=== PATIENT | female | born 1935 | race Hispanic/Latino ===

== ENCOUNTER 2018-11-19 11:54 | Inpatient (IN) | payer MEDICARE, BC ==
[2018-11-19 12:13] VITALS: BMI 25.7
[2018-11-19] MEDS ORDERED: Sodium Chloride 0.9% 1,000 ML IV STA ×2 (12:15→13:06)
[2018-11-19] MEDS ORDERED: Atropine 0.4 mg/ml Inj (1 mL) IV STA (12:22)
[2018-11-19 12:25] LABS: BASO # 0.1 K/uL (0.0-0.2); BASO % 0.8 % (0.0-2.0); EOS # 0.3 K/uL (0.0-0.7); EOS % 2.9 % (0.0-4.0); HEMOGLOBIN 12.2 g/dL (12.0-16.0); LYMPH # 1.3 K/uL (1.0-4.3); LYMPH % 12.8 % (20.0-40.0); MEAN CELL VOLUME 95.8 fl (81.0-99.0); MEAN CORPUSCULAR HEMOGLOBIN 32.6 pg (27.0-31.0); MONO # 0.8 K/uL (0.0-0.8); MONO % 8.4 % (0.0-10.0); NEUT # 7.4 K/uL (1.8-7.0); NEUT % 75.1 % (50.0-75.0); NRBC % 0.1 % (0.0-0.0); RBC 3.74 Mil/uL (3.80-5.20); RED CELL DISTRIBUTION WIDTH 13.2 % (11.5-14.5); WHITE BLOOD COUNT 9.9 K/uL (4.8-10.8)
[2018-11-19 12:32] LABS: PROTHROMBIN TIME 11.3 Seconds (9.8-13.1)
--- NOTE | 2018-11-19 12:33 | ED PDOC ---
Syncope/Near Syncope/Dizziness Time Seen by Provider: 11/19/18 11:58 Chief Complaint (Nursing): Dizziness/Lightheaded Chief Complaint (Provider): Dizziness/Lightheaded History Per: Patient, Family History/Exam Limitations: no limitations Onset/Duration Of Symptoms: Mins Current Symptoms Are (Timing): Still Present Activity At Onset Of Symptoms: Walking Additional Complaint(s): 83 y/o female with a PMHx of HTN presents to the ED for evaluation of two near syncopal episodes just prior to arrival. Son reports patient was walking down the street when she began to feel faint, close to losing consciousness twice. Son states initial episode occurred about 25 minutes prior to arrival and then next about 15 minutes prior to arrival. Patient and son report that patient only develops slurred speech, nausea, abdominal pain and right shoulder pain during those episodes. Patient denies any symptoms at present including numbness, tingling, leg pain, headache, vision changes, weakness, focal deficits, shortness of breath and palpitations. Patient noted to have a low pulse and was brought in via EMS for further evaluation. Of note, patient is visiting from [place]. Patient reports of feeling fine prior to incidents. notes patient is currently taking Losartan, Metropolol, carvedilol, memantine and Atorvastatin 40 mg. PMD: In [place], [place] Past Medical History Reviewed: Historical Data, Nursing Documentation, Vital Signs Vital Signs: Last Vital Signs Temp Pulse 41 L 11/19/18 12:09 Resp 14 11/19/18 12:09 BP 107/43 L 11/19/18 12:09 Pulse Ox 98 11/19/18 12:09 Primary Care Provider: Non [facility] Provider, - Medical History PMH: No Chronic Diseases - Surgical History Surgical History: No Surg Hx - Family History Family History: States: Unknown Family Hx - Living Arrangements Living Arrangements: With Family - Home Medications Home Medications: Ambulatory Orders Medication Instructions Recorded Aspirin [Ecotrin] 81 mg PO DAILY 11/19/18 Atorvastatin [Lipitor] 40 mg PO HS 11/19/18 Carvedilol [Coreg] 6.25 mg PO Q12 11/19/18 Diltiazem HCl [Diltiazem 24Hr ER] 300 mg PO DAILY 11/19/18 Losartan [Cozaar] 100 mg PO DAILY 11/19/18 Memantine [Namenda] 5 mg PO Q12 11/19/18 Metoprolol Succinate XL [Toprol XL] 100 mg PO DAILY 11/19/18 - Allergies Allergies/Adverse Reactions: Allergies Allergy/AdvReac Type Severity Reaction Status Date / Time No Known Allergies Allergy Verified 11/19/18 12:12 Review of Systems ROS Statement: Except As Marked, All Systems Reviewed And Found Negative Eyes: Negative for: Vision Change Cardiovascular: Negative for: Palpitations Respiratory: Negative for: Shortness of Breath Gastrointestinal: Positive for: Abdominal Pain Musculoskeletal: Positive for: Shoulder Pain. Negative for: Leg Pain Neurological: Positive for: Change in Speech, Dizziness, Other (near syncope). Negative for: Weakness, Numbness Physical Exam - Reviewed Nursing Documentation Reviewed: Yes Vital Signs Reviewed: Yes - Physical Exam Appears: Positive for: No Acute Distress Head Exam: Positive for: ATRAUMATIC, NORMOCEPHALIC Skin: Positive for: Normal Color, Warm, Dry Eye Exam: Positive for: Normal appearance, EOMI, PERRL ENT: Positive for: Normal ENT Inspection Neck: Positive for: Normal, Painless ROM Cardiovascular/Chest: Positive for: Bradycardia Respiratory: Positive for: Normal Breath Sounds. Negative for: Respiratory Distress Gastrointestinal/Abdominal: Positive for: Normal Exam, Soft. Negative for: Tenderness Extremity: Positive for: Normal ROM. Negative for: Pedal Edema, Deformity Neurological/Psych: Positive for: Awake, Alert, Oriented (x3). Negative for: Motor/Sensory Deficits - Laboratory Results Result Diagrams: 11/19/18 12:18 11/19/18 12:18 Lab Results: 34/1.7 bun and cr - ECG ECG: Positive for: Discussed With Medical Coder ECG Rhythm: Positive for: Sinus Bradycardia Interpretation Of Abn EKG: junctional escape rhythm Interpretation Of ECnd ekg: similar with increased HR compared to prior O2 Sat by Pulse Oximetry: 98 (RA) Pulse Ox Interpretation: Normal - Radiology X-Ray: Interpreted by Me, Viewed By Me X-Ray Interpretation: No Acute Disease Medical Decision Making Medical Decision Making: Time: 1229 Impression: Bradycardia Plan: -- VBG -- EKG -- EKG -- CMP -- Magnesium -- Phosphorus -- Troponin I -- CBC with Differentials -- PTT -- Prothrombin Time: -- CXR Portable -- Glucose, POC -- Atropine 0.5 mg IV -- Atropine 0.5 mg IV -- Sodium Chloride IV 1000 mls/hr -- POC [Glucose, Blood, POC] Spoke to in school suspension aide [employer] member, Dr. Taylor who is made aware of the patient and will read EKG via text. As recommended by Dr. Taylor, patient to be given Atropiene if develops symptoms. Time: 1232 Dr. Taylor reviewed EKG that demonstrated sinus bradycardia with junctional escape. Pt. has pacer pads on. 1300 Atropine given as HR was going down to 35. It increased HR to 50-60. Repeat ekg shows similar, but increased rate. 1340 Stable. HR above 45. BP maintained at 120s systolic. Continue monitoring. Possibly beta-arielle related. Will need admit. No symptoms currently. [address] Desai. Will admit. Dr. Ponce at bedside. He went to CT with pt. 1430 Dr. Kohli aware and will admit ICU. Dr. Ponce does not want any more atropine at this time. Pt. asymptomatic. AAOx3. No dizziness. Scribe Attestation: Documented by Jay Garcia, acting as a scribe Diana Porras MD. Provider Scribe Attestation: All medical record entries made by the Scribe were at my direction and personall y dictated by me. I have reviewed the chart and agree that the record accurately reflects my personal performance of the history, physical exam, medical decision making, and the department course for this patient. I have also personally directed, reviewed, and agree with the discharge instructions and disposition. Disposition - Clinical Impression Clinical Impression: Dizziness, Bradycardia - Patient ED Disposition Is Patient to be Admitted: Yes Counseled Patient/Family Regarding: Studies Performed, Diagnosis - Disposition Disposition Time: 13:00 Condition: FAIR - Pt Status Changed To: Hospital Disposition Of: Inpatient - Admit Certification Admit to Inpatient:: After my assessment, the patient will require hospitalization for at least two midnights. This is because of the severity of symptoms shown, intensity of services needed, and/or the medical risk in this patient being treated as an outpatient. - POA Present On Arrival: None
[2018-11-19 12:34] LABS: PARTIAL THROMBOPLASTIN TIME 28.6 Seconds (25.6-37.1)
[2018-11-19 12:37] LABS: ALB/GLOB RATIO 1.4 (1.0-2.1); ALBUMIN 3.9 g/dL (3.5-5.0); CALCIUM 9.8 mg/dL (8.4-10.2)
[2018-11-19 12:46] LABS: TROPONIN I 0.015 ng/mL (0.00-0.120)
--- NOTE | 2018-11-19 14:32 | RAD ---
Date of service: 11/19/2018 HISTORY: dyspnea COMPARISON: No prior. TECHNIQUE: 1 view obtained. FINDINGS: LUNGS: No active pulmonary disease. PLEURA: No significant pleural effusion identified, no pneumothorax apparent. CARDIOVASCULAR: No aortic atherosclerotic calcification present. Normal cardiac size. No pulmonary vascular congestion. OSSEOUS STRUCTURES: No significant abnormalities. VISUALIZED UPPER ABDOMEN: Normal. OTHER FINDINGS: None. IMPRESSION: No active disease.
[2018-11-19 14:38] LABS: VENOUS BLOOD GAS BASE EXCESS -3.7 mmol/L (0.0-2.0); VENOUS BLOOD GAS PCO2 42 mmHg (40-60); VENOUS BLOOD GAS PO2 31 mm/Hg (30-55); VENOUS BLOOD PH 7.33 (7.32-7.43)
--- NOTE | 2018-11-19 15:15 | CT ---
Date of service: 11/19/2018 PROCEDURE: CT HEAD WITHOUT CONTRAST. HISTORY: Headache COMPARISON: None available. TECHNIQUE: Axial computed tomography images were obtained through the head/brain without intravenous contrast. Radiation dose: Total exam DLP = 844.77 mGy-cm. This CT exam was performed using one or more of the following dose reduction techniques: Automated exposure control, adjustment of the mA and/or kV according to patient size, and/or use of iterative reconstruction technique. FINDINGS: HEMORRHAGE: No acute parenchymal, subarachnoid nor extra-axial hemorrhage BRAIN: Moderate to significant diffuse and confluent chronic periventricular white matter ischemic changes are seen extending peripherally into the deep and subcortical white matter both cerebral hemispheres. Changes extend into the white matter tracts of both basal nuclei. In addition, there are multiple more discrete chronic appearing good type infarcts scattered about both basal nuclei. Moderate fairly significant central volume loss evidenced by disproportionate enlargement of the ventricles as compared the sulci. There appears to be a few scattered bubbles of air within the cavernous sinuses; findings could be secondary to recent intravenous injection contaminated with air bubbles; rule out sequela of recent trauma. Vascular calcifications both carotid siphons. VENTRICLES: No obstructive hydrocephalus. CALVARIUM: Calvarium appears grossly intact. There are multiple bubbles of subcutaneous air seen scattered about the soft tissues of the forehead as well infratemporal fossa regions as well as the frontotemporal scalp bilaterally left greater than right. Findings could be secondary to recent intravenous injection contaminated with air however correlation with history recommended to exclude recent trauma PARANASAL SINUSES: Unremarkable as visualized. No significant inflammatory changes. Apparent postoperative changes of the partial right-sided ethmoidectomy changes with medial wall antrostomy defect right maxillary sinus. There is thickening and sclerosis of the posterolateral wall right maxillary sinus with mild mucosal thickening. MASTOID AIR CELLS: Unremarkable as visualized. No inflammatory changes. OTHER FINDINGS: Changes of bilateral cataract surgery IMPRESSION: No acute intracranial hemorrhage. Moderate to fairly significant chronic white matter ischemic changes. There is also some extension of these changes into the white matter tracts of both basal nuclei with scattered more discrete chronic bilateral basal nuclei lacunar type infarcts. Moderate fairly significant central volume loss. There are a few bubbles of air in the regions of both cavernous sinuses. More significant subcutaneous air scattered about the frontal scalp at the level of the forehead both infratemporal fossa and frontotemporal scalp regions left greater than right. Findings could be secondary to a recent intravenous injection contaminated with air. Clinical correlation recommended to exclude the possibility of recent trauma..
[2018-11-19] MEDS ORDERED: Potassium Ch 20mEq in D5-1/2NS 1,000 ML IV SCH (16:15)
--- NOTE | 2018-11-19 16:56 | CP.PCM.CON ---
<Dwain Tejada - Last Filed: 11/19/18 15:42> History of Present Illness - History of Present Illness History of Present Illness: ICU Admission Note: Pt is an 83 y/o female with hx of Dementia, HTN, Atrial Fibrillation, Chronic Sinusitis brought to ED by EMS for pre-syncopal episodes today. History obtained through patient and family at bedside. Pt's reports that she stated she woke up this morning and did not feel well. She complained of feeling dizzy and nauseous throughout the day. Pt then had 2 presyncopal episodes associated with vomiting when walking at which point she was brought to the hospital. S Of note, the pt admits to having more than her usual amount of alcoholic beverage last night but could not quantify how much. Denies any CP, SOB, Diaphoresis, Abdominal pain, Diarrhea, LE edema, recent medication changes. Pt noted in ED to be bradycardic HR in 30's w/ EKG demonstrating +junctional rhythms, received 1 dose of Atropine with slight improvement of HR. PMD and Tube Turner from [place] PMHX: Dementia, HTN, Atrial Fibrillation (Was on Xarelto in past but suffered GI bleed and was taken off), Chronic Sinusitis, Poor hearing Hospitalizations: Pt was hospitalizes last winter as per family for similar symptoms and was told her HR was too fast- no changes were made to medication PSurgHX: Hysterectomy, BL TKR, Hernia repair Social: Visiting from [place], Former smoker, Drinks alcohol daily (2+ drinks) Review of Systems - Review of Systems Systems not reviewed;Unavailable: Dementia Past Patient History - Past Social History Smoking Status: Former Smoker - CARDIAC Hx Cardiac Disorders: Yes - PSYCHIATRIC Hx Substance Use: No - SURGICAL HISTORY Hx Surgeries: Yes Hx Musculoskeletal Surgery: Yes - ANESTHESIA Hx Anesthesia: Yes Hx Anesthesia Reactions: No Meds Allergies/Adverse Reactions: Allergies Allergy/AdvReac Type Severity Reaction Status Date / Time No Known Allergies Allergy Verified 11/19/18 12:12 Physical Exam - Constitutional Appears: Non-toxic, No Acute Distress - Head Exam Head Exam: NORMAL INSPECTION - Eye Exam Eye Exam: EOMI, Normal appearance, PERRL. absent: Nystagmus - ENT Exam ENT Exam: Mucous Membranes Moist - Respiratory Exam Respiratory Exam: Clear to Auscultation Bilateral. absent: Rales, Wheezes - Cardiovascular Exam Cardiovascular Exam: Bradycardia, +S1, +S2, Systolic Murmur - GI/Abdominal Exam GI & Abdominal Exam: Normal Bowel Sounds, Soft. absent: Tenderness - Extremities Exam Extremities exam: Positive for: normal inspection - Neurological Exam Neurological exam: Alert, Oriented x3 - Psychiatric Exam Psychiatric exam: Normal Affect - Skin Skin Exam: Normal Color Results - Vital Signs Recent Vital Signs: Last Vital Signs Temp 98.1 F 11/19/18 15:23 Pulse 63 11/19/18 15:23 Resp 18 11/19/18 15:23 BP 117/74 11/19/18 15:23 Pulse Ox 95 11/19/18 15:23 - Labs Result Diagrams: 11/19/18 12:18 11/19/18 12:18 Labs: Laboratory Results - last 24 hr 11/19/18 11/19/18 11/19/18 12:09 12:18 12:18 WBC 9.9 RBC 3.74 L Hgb 12.2 Hct 35.8 MCV 95.8 MCH 32.6 H MCHC 34.0 RDW 13.2 Plt Count 247 MPV 8.0 Neut % (Auto) 75.1 H Lymph % (Auto) 12.8 L [place] % (Auto) 8.4 Eos % (Auto) 2.9 Baso % (Auto) 0.8 Neut # (Auto) 7.4 H Lymph # (Auto) 1.3 [place] # (Auto) 0.8 Eos # (Auto) 0.3 Baso # (Auto) 0.1 PT INR APTT pO2 VBG pH VBG pCO2 VBG HCO3 VBG Total CO2 VBG O2 Sat (Calc) VBG Base Excess VBG Potassium Glucose Lactate FiO2 Sodium 137 Potassium 4.3 Chloride 103 Carbon Dioxide 25 Anion Gap 13 BUN 34 H Creatinine 1.7 H Est GFR ( Amer) 35 Est GFR (Non-Af Amer) 29 POC Glucose (mg/dL) 174 H Random Glucose 155 H Calcium 9.8 Phosphorus 3.9 Magnesium 1.9 Total Bilirubin 0.9 AST 28 ALT 29 Alkaline Phosphatase 88 Troponin I 0.0150 Total Protein 6.7 Albumin 3.9 Globulin 2.8 Albumin/Globulin Ratio 1.4 Venous Blood Potassium 11/19/18 11/19/18 12:18 14:35 WBC RBC Hgb Hct MCV MCH MCHC RDW Plt Count MPV Neut % (Auto) Lymph % (Auto) [place] % (Auto) Eos % (Auto) Baso % (Auto) Neut # (Auto) Lymph # (Auto) [place] # (Auto) Eos # (Auto) Baso # (Auto) PT 11.3 INR 1.0 APTT 28.6 pO2 31 VBG pH 7.33 VBG pCO2 42 VBG HCO3 20.9 VBG Total CO2 23.4 VBG O2 Sat (Calc) 61.8 VBG Base Excess -3.7 L VBG Potassium 4.6 Glucose 121 H Lactate 2.2 H FiO2 21.0 Sodium 136.0 Potassium Chloride 110.0 H Carbon Dioxide Anion Gap BUN Creatinine Est GFR ( Amer) Est GFR (Non-Af Amer) POC Glucose (mg/dL) Random Glucose Calcium Phosphorus Magnesium Total Bilirubin AST ALT Alkaline Phosphatase Troponin I Total Protein Albumin Globulin Albumin/Globulin Ratio Venous Blood Potassium 4.6 Assessment & Plan - Assessment and Plan (Free Text) Assessment: Pt is an 83 y/o female with hx of Dementia, HTN, HLD, Atrial Fibrillation, Chronic Sinusitis brought to ED by EMS for pre-syncopal episodes associated with vomiting, noted to be Bradycardic HR in 30's w/ EKG demonstrating +junctional rhythms, received 1 dose of Atropine with slight improvement of HR. Admitted to ICU for close cardiac monitoring. Neuro - Hx of Dementia; will hold Memantine as acetylcholinesterase inhibitor effect may contribute to Bradycardia - Head CT: No acute intracranial hemorrhage, chronic ischemic changes - AAO x3 Cardio - Symptomatic Bradycardia w/ HR in 30's S/P Atropine x1 in ED - EKG on admission: HR 45, Atrial Fibrillation, +Junctional rhythms, no ischemic changes - Has underlying Hx of Afibb, possibly paroxysmal - Bradycardia likely medication induced as pt is currently on multiple AV silvia blocking agents (Metroprolol, Coreg, Cardizem) - Will hold all AV silvia blocking agents and Memantine and monitor for improvement - Differential Diagnosis includes:Medication induced (polypharmacy), Inferior Wall Structural dysfunction, SA node or AV silvia dysfunction, Sick Sinus Syndrome, Hypothyroidism, Vestibular disease, Gastritis induced bradycardia via vagal nerve stimulation - Continuous Cardiac Monitoring - Will have transcutaneous pacer pads on standby - Echo report pending - C/W ASA and Statin. Hold Antihypertensive medication - Cardiac Electrophysicist Dr. Newell on board - Tube Turner, Dr. Mcclelland on board Pulm - Saturating 95-99% on Rm air Renal - Crea 1.7 (baseline unknown) - YUNI vs CKD - IV fluids started GI - Pepcid for possible Gastritis - Liquid diet, advance as tolerated Endocrine - TSH and Hga1c sent PPx - DVT: Lovenox Discussed case with Dr. Seun Tejada PGY2 <Axel Kohli V - Last Filed: 11/19/18 17:06> Meds - Medications Medications: Current Medications Aspirin (Ecotrin) 81 mg PO DAILY [facility] Atorvastatin Calcium (Lipitor) 40 mg PO HS COURTNEY Famotidine (Pepcid) 40 mg PO DAILY [facility] Last Admin: 11/19/18 17:02 Dose: 40 mg Potassium Chloride/Dextrose/Sod Cl (Potassium Chl 20 Meq In D5-1/2ns) 1,000 mls @ 40 mls/hr IV .Q24H COURTNEY Stop: 11/20/18 16:05 Last Admin: 11/19/18 17:02 Dose: 40 mls/hr Results - Vital Signs Recent Vital Signs: Last Vital Signs Temp 98.1 F 11/19/18 15:23 Pulse 43 L 11/19/18 16:13 Resp 11 L 11/19/18 16:13 BP 117/74 11/19/18 15:23 Pulse Ox 95 11/19/18 15:23 - Labs Result Diagrams: 11/19/18 12:18 11/19/18 12:18 Labs: Laboratory Results - last 24 hr 11/19/18 11/19/18 11/19/18 12:09 12:18 12:18 WBC 9.9 RBC 3.74 L Hgb 12.2 Hct 35.8 MCV 95.8 MCH 32.6 H MCHC 34.0 RDW 13.2 Plt Count 247 MPV 8.0 Neut % (Auto) 75.1 H Lymph % (Auto) 12.8 L [place] % (Auto) 8.4 Eos % (Auto) 2.9 Baso % (Auto) 0.8 Neut # (Auto) 7.4 H Lymph # (Auto) 1.3 [place] # (Auto) 0.8 Eos # (Auto) 0.3 Baso # (Auto) 0.1 PT INR APTT pO2 VBG pH VBG pCO2 VBG HCO3 VBG Total CO2 VBG O2 Sat (Calc) VBG Base Excess VBG Potassium Glucose Lactate FiO2 Sodium 137 Potassium 4.3 Chloride 103 Carbon Dioxide 25 Anion Gap 13 BUN 34 H Creatinine 1.7 H Est GFR ( Amer) 35 Est GFR (Non-Af Amer) 29 POC Glucose (mg/dL) 174 H Random Glucose 155 H Calcium 9.8 Phosphorus 3.9 Magnesium 1.9 Total Bilirubin 0.9 AST 28 ALT 29 Alkaline Phosphatase 88 Troponin I 0.0150 Total Protein 6.7 Albumin 3.9 Globulin 2.8 Albumin/Globulin Ratio 1.4 Venous Blood Potassium 11/19/18 11/19/18 12:18 14:35 WBC RBC Hgb Hct MCV MCH MCHC RDW Plt Count MPV Neut % (Auto) Lymph % (Auto) [place] % (Auto) Eos % (Auto) Baso % (Auto) Neut # (Auto) Lymph # (Auto) [place] # (Auto) Eos # (Auto) Baso # (Auto) PT 11.3 INR 1.0 APTT 28.6 pO2 31 VBG pH 7.33 VBG pCO2 42 VBG HCO3 20.9 VBG Total CO2 23.4 VBG O2 Sat (Calc) 61.8 VBG Base Excess -3.7 L VBG Potassium 4.6 Glucose 121 H Lactate 2.2 H FiO2 21.0 Sodium 136.0 Potassium Chloride 110.0 H Carbon Dioxide Anion Gap BUN Creatinine Est GFR ( Amer) Est GFR (Non-Af Amer) POC Glucose (mg/dL) Random Glucose Calcium Phosphorus Magnesium Total Bilirubin AST ALT Alkaline Phosphatase Troponin I Total Protein Albumin Globulin Albumin/Globulin Ratio Venous Blood Potassium 4.6 Assessment & Plan - Assessment and Plan (Free Text) Assessment: patient is seen and examined with resident. discussed with family. agree with plan of care as detailed in resident's note
--- NOTE | 2018-11-19 17:29 | CARD ---
APPROVED REPORT Date of service: 11/19/2018 EKG Measurement Heart [id number] <Conclusion> Marked sinus bradycardia with junctional escape beats and premature atrial beats Nonspecific ST abnormality Abnormal ECG
--- NOTE | 2018-11-19 17:44 | CARD ---
APPROVED REPORT Date of service: 11/19/2018 EXAM: Two-dimensional and M-mode echocardiogram with Doppler and color Doppler. Other Information Quality : GoodRhythm : Bradycardia INDICATION Abnormal EKG/Arrhythmia 2D DIMENSIONS IVSd1.40 (0.7-1.1cm)LVDd4.23 (3.9-5.9cm) LVOT Diameter1.87 (1.8-2.4cm)PWd1.02 (0.7-1.1cm) IVSs1.65 (0.8-1.2cm)LVDs2.47 (2.5-4.0cm) FS (%) 41.6 %PWs1.38 (0.8-1.2cm) M-Mode DIMENSIONS Left Atrium (MM)4.24 (2.5-4.0cm)IVSd1.06 (0.7-1.1cm) Aortic Root3.21 (2.2-3.7cm)LVDd4.47 (4.0-5.6cm) Aortic Cusp Exc.1.85 (1.5-2.0cm)PWd1.26 (0.7-1.1cm) IVSs1.85 cmFS (%) 48 % LVDs2.32 (2.0-3.8cm)PWs1.62 cm Aortic Valve AoV Peak Bzzdntzh723.1cm/sAoV VTI34.6cmAO Peak GR.6mmHg LVOT Peak Ylhmzzyb17.0cm/sLVOT VTI22.50cmAO Mean GR.4mmHg NELL (VMAX)0.37bn0DNQ (VTI)1.01cm2 Mitral Valve MV E Sddaesky04.6cm/sMV DECEL [id number] A Wnmawobn22.7cm/s MV LHT24wcN/A ratio2.3MVA (PHT)3.39cm2 TDI Lateral E' Peak V5.87cm/sMedial E' Peak V6.84cm/sE/Lateral E'14.6 E/Medial E'12.5 Tricuspid Valve TR Peak Cldyvpmu850hr/sRAP CCBUQLKR13oeNqEO Peak Gr.21mmHg [id number] LEFT VENTRICLE The left ventricle is normal size. There is mild concentric left ventricular hypertrophy with sigmoid septum. The left ventricular systolic function is normal. The estimated ejection fraction is 60-65% No regional wall motion abnormalities noted.. Transmitral Doppler flow pattern is Grade I-abnormal relaxation pattern. No left ventricle thrombus noted on this study. There is no ventricular septal defect visualized. There is no left ventricular aneurysm. There is no mass noted in the left ventricle. RIGHT VENTRICLE The right ventricle is normal size. There is normal right ventricular wall thickness. The right ventricular systolic function is normal. ATRIA The left atrium is mildly dilated. The right atrium size is normal. The interatrial septum is intact with no evidence for an atrial septal defect. AORTIC VALVE The aortic valve is normal in structure. No aortic regurgitation is present. There is no aortic valvular stenosis. There is no aortic valvular vegetation. MITRAL VALVE The mitral valve is normal in structure. There is no evidence of mitral valve prolapse. There is no mitral valve stenosis. There is mild mitral valve regurgitation noted. TRICUSPID VALVE The tricuspid valve is normal in structure. There is mild tricuspid valve regurgitation noted. RVSP is calculated at 28 mm Hg. There is no tricuspid valve prolapse or vegetation. There is no tricuspid valve stenosis. PULMONIC VALVE The pulmonary valve is normal in structure. There is no pulmonic valvular regurgitation. There is no pulmonic valvular stenosis. GREAT VESSELS The aortic root is normal in size. The ascending aorta is normal in size. The pulmonary artery is normal. The IVC is normal in size and collapses >50% with inspiration. PERICARDIAL EFFUSION There is no pericardial effusion. There is no pleural effusion. <Conclusion> There is mild concentric left ventricular hypertrophy with sigmoid septum. The estimated ejection fraction is 60-65% Transmitral Doppler flow pattern is Grade I-abnormal relaxation pattern. The left atrium is mildly dilated. There is mild mitral valve regurgitation noted. There is mild tricuspid valve regurgitation noted. RVSP is calculated at 28 mm Hg.
[2018-11-19] MEDS ORDERED: Alum-Mag Hydrox-Simethicone Susp (30 mL) PO ONE (22:39)
--- NOTE | 2018-11-20 02:06 | CON ---
DATE: 11/19/2018 REASON FOR CONSULTATION: Symptomatic bradycardia. HISTORY OF PRESENT ILLNESS: The patient is an 83-year-old female, a former smoker who quit three years ago who has history of hypertension, visiting from [place] to [place]. After a long drive with her family, the patient did experience two near fainting spells according to the ER team; however, the patient has admitted to me that in one event she completely passed out. She was sitting on a chair at that time. The patient was noted to be bradycardic in the emergency room and after discussing the case with the emergency room physician, Dr. Porras, the patient did receive 0.5 mL of IV atropine with some improvement of the heart rate. The patient has been asymptomatic since her presentation to the emergency room and heart rate on the monitor is sinus bradycardia with junctional escape. The patient denies any prior history of coronary artery disease and is unaware of any history of bradycardia in the past, however, she was told that she has history of atrial fibrillation. SOCIAL HISTORY: The patient is a former smoker who quit 3 years ago. PAST MEDICAL HISTORY: Hypertension, hyperlipidemia. MEDICATIONS: The patient's home medications include Toprol-XL 100 mg daily, Namenda 5 mg every 12 hours, Cozaar 100 mg once a day, Coreg 6.25 mg twice a day, Lipitor 40 mg once a day, aspirin 81 mg once a day, Cardizem CD 300 mg daily. The last time the patient took all her medications was last night. REVIEW OF SYSTEMS: No nausea or vomiting. No fever or chills. The patient complains of mild cough. PHYSICAL EXAMINATION: GENERAL: The patient is an elderly female who does not appear to be in acute distress. VITAL SIGNS: Blood pressure 90/57, heart rate 47, respirations 17. No temperature has been taken yet. LABORATORY DATA: Hemoglobin and hematocrit 12.2 and 35.7, white count and platelet count are within normal limits. SMA-7 in the ER: Sodium 137, potassium 4.3, chloride 103, CO2 of 25, glucose 155, BUN 37, creatinine 1.7. One set of troponin 0.015. Chest x-ray is unremarkable. EKG revealed sinus bradycardia with junctional escape as well as junctional premature beats. Heart rate is 45. ASSESSMENT: 1. Symptomatic bradycardia. The patient's bradycardia most likely iatrogenic as the patient is on two different beta-blockers which are Toprol-XL 100 mg daily and Coreg 6.25 mg twice a day besides a large dose of Cardizem CD 300 mg. 2. Hypertension. 3. Renal insufficiency, most likely a chronic one. RECOMMENDATIONS: Continue current intervenous hydration. Admit the patient to the ICU. Keep external pacing leads on a stand by. Obtain TSH level, echocardiograph study and request electrophysiology consult by Dr. Plascencia. Hernando Taylor MD
[2018-11-20] MEDS ORDERED: Albuterol 0.083% Inhal Sol (2.5 mg/3 mL) UD INH STA (02:18)
[2018-11-20 05:48] LABS: BASO # 0.1 K/uL (0.0-0.2); BASO % 1.2 % (0.0-2.0); EOS # 0.1 K/uL (0.0-0.7); EOS % 1.4 % (0.0-4.0); HEMOGLOBIN 12.9 g/dL (12.0-16.0); LYMPH % 9.6 % (20.0-40.0); MEAN CELL VOLUME 98.8 fl (81.0-99.0); MEAN CORPUSCULAR HEMOGLOBIN 32.8 pg (27.0-31.0); MEAN CORPUSCULAR HGB CONC 33.2 g/dL (33.0-37.0); MONO # 0.8 K/uL (0.0-0.8); NEUT # 8.7 K/uL (1.8-7.0); NEUT % 80.8 % (50.0-75.0); PLATELET COUNT 167 K/uL (130-400); RBC 3.93 Mil/uL (3.80-5.20); RED CELL DISTRIBUTION WIDTH 13.4 % (11.5-14.5); WHITE BLOOD COUNT 10.7 K/uL (4.8-10.8)
[2018-11-20 06:03] LABS: ALB/GLOB RATIO 1.4 (1.0-2.1); ALBUMIN 3.9 g/dL (3.5-5.0); CALCIUM 9.8 mg/dL (8.4-10.2)
[2018-11-20 06:11] LABS: TROPONIN I 0.013 ng/mL (0.00-0.120)
--- NOTE | 2018-11-20 06:18 | CP.PCM.HP ---
<Hugo Britt - Last Filed: 11/20/18 10:51> History of Present Illness - History of Present Illness History of Present Illness: 83 y/o female with hx of Dementia, HTN, Atrial Fibrillation, Chronic Sinusitis presents to ED by EMS for evaluation of two near syncopal episodes today. Patient is visiting from [place]. She complained of feeling dizzy and nauseous throughout the day, she was walking down the street whit her family when she began to feel faint, close to losing consciousness twice. Associated vomiting, slurred speech, nausea, abdominal pain. Otherwise she denies any numbness, tingling, leg pain, headache, vision changes, weakness, focal deficits, shortness of breath and palpitations, CP during episodes. Patient seen and examined today with DR Desai, reports feeling much better, denies any palpitations, CP sob at present. BP noted on the high side, being off her BP meds, NSR noted in the monitor with Rate on 70s. No overnight events reported. 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 [place] PMHX: Dementia, HTN, Atrial Fibrillation (Was on Xarelto in past but suffered GI bleed and was taken off), Chronic Sinusitis, Poor hearing Hospitalizations: Pt was hospitalizes last winter as per family for similar symptoms and was told her HR was too fast- no changes were made to medication PSurgHX: Hysterectomy, BL TKR, Hernia repair Social: Visiting from [place], Former smoker, Drinks alcohol daily (2+ drinks) Present on Admission - Present on Admission Any Indicators Present on Admission: No Past Patient History - Past Social History Smoking Status: Former Smoker - CARDIAC Hx Cardiac Disorders: Yes - NEUROLOGICAL Hx Dizziness: Yes - MUSCULOSKELETAL/RHEUMATOLOGICAL Hx Falls: No - GASTROINTESTINAL Hx Gastritis: Yes - PSYCHIATRIC Hx Substance Use: No - SURGICAL HISTORY Hx Surgeries: Yes Hx Musculoskeletal Surgery: Yes - ANESTHESIA Hx Anesthesia: Yes Hx Anesthesia Reactions: No Meds Allergies/Adverse Reactions: Allergies Allergy/AdvReac Type Severity Reaction Status Date / Time No Known Allergies Allergy Verified 11/19/18 12:12 Physical Exam - Constitutional Appears: Non-toxic, No Acute Distress - Head Exam Head Exam: NORMAL INSPECTION - Eye Exam Eye Exam: EOMI, Normal appearance, PERRL. absent: Nystagmus - ENT Exam ENT Exam: Mucous Membranes Moist - Neck Exam Neck exam: Positive for: Full Rom, Normal Inspection. Negative for: Lymphad enopathy, Tenderness, Thyromegaly - Respiratory Exam Respiratory Exam: Clear to Auscultation Bilateral, NORMAL BREATHING PATTERN. absent: Chest Wall Tenderness - Cardiovascular Exam Cardiovascular Exam: REGULAR RHYTHM, +S1, +S2. absent: Bradycardia, Systolic Murmur - GI/Abdominal Exam GI & Abdominal Exam: Normal Bowel Sounds, Soft. absent: Distended, Tenderness - Extremities Exam Extremities exam: Negative for: calf tenderness, pedal edema - Neurological Exam Neurological exam: Alert, CN II-XII Intact, Oriented x3, Reflexes Normal - Psychiatric Exam Psychiatric exam: Normal Mood - Skin Skin Exam: Dry, Normal Color, Warm Results - Vital Signs Recent Vital Signs: Last Vital Signs Temp 98.0 F 11/20/18 04:00 Pulse 67 11/20/18 06:00 Resp 95 H 11/20/18 06:00 BP 155/83 H 11/20/18 06:00 Pulse Ox 95 11/20/18 06:00 - Labs Result Diagrams: 11/20/18 04:25 11/20/18 04:25 Labs: Laboratory Results - last 24 hr 11/19/18 11/19/18 11/19/18 12:09 12:18 12:18 WBC 9.9 RBC 3.74 L Hgb 12.2 Hct 35.8 MCV 95.8 MCH 32.6 H MCHC 34.0 RDW 13.2 Plt Count 247 MPV 8.0 Neut % (Auto) 75.1 H Lymph % (Auto) 12.8 L [place] % (Auto) 8.4 Eos % (Auto) 2.9 Baso % (Auto) 0.8 Neut # (Auto) 7.4 H Lymph # (Auto) 1.3 [place] # (Auto) 0.8 Eos # (Auto) 0.3 Baso # (Auto) 0.1 PT INR APTT pO2 VBG pH VBG pCO2 VBG HCO3 VBG Total CO2 VBG O2 Sat (Calc) VBG Base Excess VBG Potassium Glucose Lactate FiO2 Sodium 137 Potassium 4.3 Chloride 103 Carbon Dioxide 25 Anion Gap 13 BUN 34 H Creatinine 1.7 H Est GFR ( Amer) 35 Est GFR (Non-Af Amer) 29 POC Glucose (mg/dL) 174 H Random Glucose 155 H Hemoglobin A1c Calcium 9.8 Phosphorus 3.9 Magnesium 1.9 Total Bilirubin 0.9 AST 28 ALT 29 Alkaline Phosphatase 88 Troponin I 0.0150 Total Protein 6.7 Albumin 3.9 Globulin 2.8 Albumin/Globulin Ratio 1.4 Triglycerides Cholesterol LDL Cholesterol Direct HDL Cholesterol TSH 3rd Generation Venous Blood Potassium 11/19/18 11/19/18 11/19/18 12:18 14:35 16:50 WBC RBC Hgb Hct MCV MCH MCHC RDW Plt Count MPV Neut % (Auto) Lymph % (Auto) [place] % (Auto) Eos % (Auto) Baso % (Auto) Neut # (Auto) Lymph # (Auto) [place] # (Auto) Eos # (Auto) Baso # (Auto) PT 11.3 INR 1.0 APTT 28.6 pO2 31 VBG pH 7.33 VBG pCO2 42 VBG HCO3 20.9 VBG Total CO2 23.4 VBG O2 Sat (Calc) 61.8 VBG Base Excess -3.7 L VBG Potassium 4.6 Glucose 121 H Lactate 2.2 H FiO2 21.0 Sodium 136.0 Potassium Chloride 110.0 H Carbon Dioxide Anion Gap BUN Creatinine Est GFR ( Amer) Est GFR (Non-Af Amer) POC Glucose (mg/dL) Random Glucose Hemoglobin A1c Calcium Phosphorus Magnesium Total Bilirubin AST ALT Alkaline Phosphatase Troponin I < 0.0120 Total Protein Albumin Globulin Albumin/Globulin Ratio Triglycerides Cholesterol LDL Cholesterol Direct HDL Cholesterol TSH 3rd Generation 3.36 Venous Blood Potassium 4.6 11/19/18 11/20/18 11/20/18 16:50 04:25 04:25 WBC 10.7 RBC 3.93 Hgb 12.9 Hct 38.9 MCV 98.8 D MCH 32.8 H MCHC 33.2 RDW 13.4 Plt Count 167 MPV 9.0 Neut % (Auto) 80.8 H Lymph % (Auto) 9.6 L [place] % (Auto) 7.0 Eos % (Auto) 1.4 Baso % (Auto) 1.2 Neut # (Auto) 8.7 H Lymph # (Auto) 1.0 [place] # (Auto) 0.8 Eos # (Auto) 0.1 Baso # (Auto) 0.1 PT INR APTT pO2 VBG pH VBG pCO2 VBG HCO3 VBG Total CO2 VBG O2 Sat (Calc) VBG Base Excess VBG Potassium Glucose Lactate FiO2 Sodium 136 Potassium 4.0 Chloride 105 Carbon Dioxide 21 L Anion Gap 14 BUN 26 H Creatinine 1.3 H Est GFR ( Amer) 47 Est GFR (Non-Af Amer) 39 POC Glucose (mg/dL) Random Glucose 132 H Hemoglobin A1c 6.4 Calcium 9.8 Phosphorus 2.8 Magnesium 1.8 Total Bilirubin 0.9 AST 100 H D ALT 121 H D Alkaline Phosphatase 105 Troponin I 0.0130 Total Protein 6.7 Albumin 3.9 Globulin 2.8 Albumin/Globulin Ratio 1.4 Triglycerides 171 H Cholesterol 204 H LDL Cholesterol Direct 129 HDL Cholesterol 54 TSH 3rd Generation Venous Blood Potassium Assessment & Plan - Assessment and Plan (Free Text) Assessment: 83 y/o female with hx of Dementia, HTN, HLD, Atrial Fibrillation, Chronic Sinusitis admitted with symptomatic bradycardia On ED HR in 30's w/ EKG demonstrating +junctional rhythms, received 1 dose of Atropine with slight improvement of HR. Admitted to ICU for close cardiac monitoring. Head CT: No acute intracranial hemorrhage, chronic ischemic changes Plan: Bradycardia, improving - Symptomatic Bradycardia w/ HR in 30's S/P Atropine x1 in ED - Likely 2/2 to polypharmacy (Metroprolol, Coreg, Cardizem) - EKG on admission: HR 45, Atrial Fibrillation, +Junctional rhythms, no ischemic changes - Echo: LVEF 60-65% mild concentric LVH, mild MR and TR - TSH wnl - troponin negative x3 - Antihypertensive Meds held for now - Continuous Cardiac Monitoring - transcutaneous pacer pads on standby - C/W ASA and Statin - Cardiac Electrophysicist Dr. Newell on board - Screen Printing Supervisor, Dr. Mcclelland on board YUIN vs CKD, baseline unknown - improving - GFR 39, - IV fluids PPx - DVT: Lovenox Discussed case with Dr. Desai <Zbigniew Desai - Last Filed: 11/25/18 16:52> Results - Vital Signs Recent Vital Signs: Last Vital Signs Temp 97.5 F L 11/25/18 12:00 Pulse 72 11/25/18 11:27 Resp 13 11/25/18 08:00 BP 119/55 L 11/25/18 10:00 Pulse Ox 98 11/25/18 11:27 - Labs Result Diagrams: 11/25/18 04:41 11/25/18 04:41 Labs: Laboratory Results - last 24 hr 11/25/18 11/25/18 04:41 04:41 WBC 12.3 H RBC 3.42 L Hgb 11.1 L D Hct 32.7 L MCV 95.6 D MCH 32.4 H MCHC 33.9 RDW 12.6 Plt Count 213 Sodium 134 Potassium 4.2 Chloride 105 Carbon Dioxide 21 L Anion Gap 12 BUN 25 H Creatinine 1.0 Est GFR ( Amer) > 60 Est GFR (Non-Af Amer) 53 Random Glucose 148 H Calcium 9.3 Assessment & Plan - Assessment and Plan (Free Text) Assessment: Patient was personally seen and examined by me in rounds with residents. Available labs and diagnostic data reviewed. Case, Patient's condition and management plan discussed with residents in rounds. Agree with resident's progress note. Plan: As ordered.
[2018-11-20] MEDS: Enoxaparin 30 mg Syringe SC SCH (08:35)
[2018-11-20 09:23] LABS: BASOPHIL 1 % (0-2); LYMPHOCYTE 8 % (20-50); MONOCYTE 5 % (0-10); NEUTROPHIL 86 % (42-75); TOTAL CELLS COUNTED 100
[2018-11-20 09:24] LABS: ANISOCYTOSIS SLIGHT; LARGE PLATELETS PRESENT; PLATELET ESTIMATE NORMAL (NORMAL)
--- NOTE | 2018-11-20 11:12 | RAD ---
Date of service: 11/20/2018 HISTORY: SOB/ COMPARISON: 11/19/2018 TECHNIQUE: 1 view obtained. FINDINGS: LUNGS: No active pulmonary disease. PLEURA: No significant pleural effusion identified, no pneumothorax apparent. CARDIOVASCULAR: No aortic atherosclerotic calcification present. Normal cardiac size. No pulmonary vascular congestion. OSSEOUS STRUCTURES: No significant abnormalities. VISUALIZED UPPER ABDOMEN: Normal. OTHER FINDINGS: None. IMPRESSION: No active disease.
--- NOTE | 2018-11-20 11:15 | CP.CCUPN ---
<Dwain Tejada - Last Filed: 11/20/18 10:26> CCU Subjective - Physician Review Subjective (Free Text): Overnight pt complained of feeling Sob and epigastric discomfort. Was noted to be congested on Cxray and given 2 dose of Lasix and Albuterol with relief of symptoms. Was also given Maalox. Otherwise HR stable overnight ranging form 50-70. Pt seen and examined this morning. States she feels much better. Denies any symptoms. Seen resting comfotably. Spoke with Dr. Chavez this morning; Pt may need pacemaker in order to restart AV silvia medication, will discuss with family today. Critical Care Time Spent (in minutes): 35 CCU Objective - Vital Signs / Intake & Output Vital Signs (Last 4 hours): Vital Signs Temp Pulse Resp BP Pulse Ox 11/20/18 10:09 69 170/79 H 11/20/18 08:00 98.7 F 72 15 167/89 H 96 Intake and Output (Last 8hrs): Intake & Output 11/19/18 11/20/18 11/20/18 22:59 06:59 14:59 Intake Total 2310 520 180 Output Total 550 2250 900 Balance 1760 -1730 -720 Weight 172 lb 166 lb Intake: IV 2160 320 80 Oral 150 200 100 Output: Urine 550 2250 900 Urine, Voided 550 2250 900 - Physical Exam Physical Exam Limitations: Positive for: Altered Mental Status (AOx2 (dementia)) Pupils: Positive for: PERRL Extroacular Muscles: Positive for: EOMI Conjunctiva: Positive for: Normal Mouth: Positive for: Moist Mucous Membranes Respiratory/Chest: Positive for: Clear to Auscultation. Negative for: Good Air Exchange, Respiratory Distress, Accessory Muscle Use, Wheezes, Rales Cardiovascular: Positive for: Regular Rate and Rhythm, Normal S1, S2. Negative for: Murmurs Abdomen: Positive for: Normal Bowel Sounds. Negative for: Tenderness Lower Extremity: Positive for: Normal Inspection Skin: Positive for: Warm Psychiatric: Positive for: Alert, Oriented x 3 - Medications Active Medications: Active Medications Generic Name Dose Route Start Last Admin Trade Name Freq PRN Reason Stop Dose Admin Aspirin 81 mg 11/20/18 09:00 11/20/18 08:35 Ecotrin PO 81 mg DAILY COURTNEY Administration Atorvastatin Calcium 40 mg 11/19/18 22:00 11/19/18 21:49 Lipitor PO 40 mg HS COURTNEY Administration Enoxaparin Sodium 30 mg 11/20/18 09:00 11/20/18 08:35 Lovenox SC 30 mg DAILY COURTNEY Administration Protocol Famotidine 40 mg 11/19/18 16:30 11/20/18 08:37 Pepcid PO 40 mg DAILY COURTNEY Administration Potassium Chloride/Dextrose/Sod Cl 1,000 mls @ 40 mls/hr 11/19/18 16:15 11/19/18 17:02 Potassium Chl 20 Meq In D5-1/2ns IV 11/20/18 16:05 40 mls/hr .Q24H COURTNEY Administration Losartan Potassium 25 mg 11/20/18 09:00 11/20/18 10:09 Cozaar PO 25 mg DAILY COURTNEY Administration - Patient Studies Lab Studies: Lab Studies 11/20/18 11/20/18 11/19/18 Range/Units 04:25 04:25 16:50 WBC 10.7 (4.8-10.8) K/uL RBC 3.93 (3.80-5.20) Mil/uL Hgb 12.9 (12.0-16.0) g/dL Hct 38.9 (34.0-47.0) % MCV 98.8 D (81.0-99.0) fl MCH 32.8 H (27.0-31.0) pg MCHC 33.2 (33.0-37.0) g/dL RDW 13.4 (11.5-14.5) % Plt Count 167 (130-400) K/uL MPV 9.0 (7.2-11.7) fl Neut % (Auto) 80.8 H (50.0-75.0) % Lymph % (Auto) 9.6 L (20.0-40.0) % Billings % (Auto) 7.0 (0.0-10.0) % Eos % (Auto) 1.4 (0.0-4.0) % Baso % (Auto) 1.2 (0.0-2.0) % Neut # (Auto) 8.7 H (1.8-7.0) K/uL Lymph # (Auto) 1.0 (1.0-4.3) K/uL Billings # (Auto) 0.8 (0.0-0.8) K/uL Eos # (Auto) 0.1 (0.0-0.7) K/uL Baso # (Auto) 0.1 (0.0-0.2) K/uL Neutrophils % (Manual) 86 H (42-75) % Lymphocytes % (Manual) 8 L (20-50) % Monocytes % (Manual) 5 (0-10) % Basophils % (Manual) 1 (0-2) % Platelet Estimate Normal (NORMAL) Large Platelets Present Anisocytosis (manual) Slight PT (9.8-13.1) Seconds INR APTT (25.6-37.1) Seconds pO2 (30-55) mm/Hg VBG pH (7.32-7.43) VBG pCO2 (40-60) mmHg VBG HCO3 mmol/L VBG Total CO2 (22-28) mmol/L VBG O2 Sat (Calc) (40-65) % VBG Base Excess (0.0-2.0) mmol/L VBG Potassium (3.6-5.2) mmol/L Glucose (65-105) mg/dL Lactate (0.7-2.1) mmol/L FiO2 % Sodium 136 (132-148) mmol/l Potassium 4.0 (3.6-5.0) MMOL/L Chloride 105 (98-107) mmol/L Carbon Dioxide 21 L (22-30) mmol/L Anion Gap 14 (10-20) BUN 26 H (7-17) mg/dl Creatinine 1.3 H (0.7-1.2) mg/dl Est GFR ( Amer) 47 Est GFR (Non-Af Amer) 39 POC Glucose (mg/dL) (65-110) mg/dL Random Glucose 132 H (65-105) mg/dL Hemoglobin A1c 6.4 (4.2-6.5) % Calcium 9.8 (8.4-10.2) mg/dL Phosphorus 2.8 (2.5-4.5) mg/dl Magnesium 1.8 (1.6-2.3) MG/DL Total Bilirubin 0.9 (0.2-1.3) mg/dl AST 100 H D (14-36) U/L ALT 121 H D (9-52) U/L Alkaline Phosphatase 105 (38-126) U/L Troponin I 0.0130 (0.00-0.120) ng/mL Total Protein 6.7 (6.3-8.2) G/DL Albumin 3.9 (3.5-5.0) g/dL Globulin 2.8 (2.2-3.9) gm/dL Albumin/Globulin Ratio 1.4 (1.0-2.1) Triglycerides 171 H (0-149) mg/DL Cholesterol 204 H (0-199) mg/dL LDL Cholesterol Direct 129 (0-129) mg/dL HDL Cholesterol 54 (30-70) MG/DL TSH 3rd Generation (0.46-4.68) mIU/ML Venous Blood Potassium (3.6-5.2) mmol/L 11/19/18 11/19/18 11/19/18 Range/Units 16:50 14:35 12:18 WBC (4.8-10.8) K/uL RBC (3.80-5.20) Mil/uL Hgb (12.0-16.0) g/dL Hct (34.0-47.0) % MCV (81.0-99.0) fl MCH (27.0-31.0) pg MCHC (33.0-37.0) g/dL RDW (11.5-14.5) % Plt Count (130-400) K/uL MPV (7.2-11.7) fl Neut % (Auto) (50.0-75.0) % Lymph % (Auto) (20.0-40.0) % Billings % (Auto) (0.0-10.0) % Eos % (Auto) (0.0-4.0) % Baso % (Auto) (0.0-2.0) % Neut # (Auto) (1.8-7.0) K/uL Lymph # (Auto) (1.0-4.3) K/uL Billings # (Auto) (0.0-0.8) K/uL Eos # (Auto) (0.0-0.7) K/uL Baso # (Auto) (0.0-0.2) K/uL Neutrophils % (Manual) (42-75) % Lymphocytes % (Manual) (20-50) % Monocytes % (Manual) (0-10) % Basophils % (Manual) (0-2) % Platelet Estimate (NORMAL) Large Platelets Anisocytosis (manual) PT 11.3 (9.8-13.1) Seconds INR 1.0 APTT 28.6 (25.6-37.1) Seconds pO2 31 (30-55) mm/Hg VBG pH 7.33 (7.32-7.43) VBG pCO2 42 (40-60) mmHg VBG HCO3 20.9 mmol/L VBG Total CO2 23.4 (22-28) mmol/L VBG O2 Sat (Calc) 61.8 (40-65) % VBG Base Excess -3.7 L (0.0-2.0) mmol/L VBG Potassium 4.6 (3.6-5.2) mmol/L Glucose 121 H (65-105) mg/dL Lactate 2.2 H (0.7-2.1) mmol/L FiO2 21.0 % Sodium 136.0 (132-148) mmol/l Potassium (3.6-5.0) MMOL/L Chloride 110.0 H (98-107) mmol/L Carbon Dioxide (22-30) mmol/L Anion Gap (10-20) BUN (7-17) mg/dl Creatinine (0.7-1.2) mg/dl Est GFR ( Amer) Est GFR (Non-Af Amer) POC Glucose (mg/dL) (65-110) mg/dL Random Glucose (65-105) mg/dL Hemoglobin A1c (4.2-6.5) % Calcium (8.4-10.2) mg/dL Phosphorus (2.5-4.5) mg/dl Magnesium (1.6-2.3) MG/DL Total Bilirubin (0.2-1.3) mg/dl AST (14-36) U/L ALT (9-52) U/L Alkaline Phosphatase (38-126) U/L Troponin I < 0.0120 (0.00-0.120) ng/mL Total Protein (6.3-8.2) G/DL Albumin (3.5-5.0) g/dL Globulin (2.2-3.9) gm/dL Albumin/Globulin Ratio (1.0-2.1) Triglycerides (0-149) mg/DL Cholesterol (0-199) mg/dL LDL Cholesterol Direct (0-129) mg/dL HDL Cholesterol (30-70) MG/DL TSH 3rd Generation 3.36 (0.46-4.68) mIU/ML Venous Blood Potassium 4.6 (3.6-5.2) mmol/L 11/19/18 11/19/18 11/19/18 Range/Units 12:18 12:18 12:09 WBC 9.9 (4.8-10.8) K/uL RBC 3.74 L (3.80-5.20) Mil/uL Hgb 12.2 (12.0-16.0) g/dL Hct 35.8 (34.0-47.0) % MCV 95.8 (81.0-99.0) fl MCH 32.6 H (27.0-31.0) pg MCHC 34.0 (33.0-37.0) g/dL RDW 13.2 (11.5-14.5) % Plt Count 247 (130-400) K/uL MPV 8.0 (7.2-11.7) fl Neut % (Auto) 75.1 H (50.0-75.0) % Lymph % (Auto) 12.8 L (20.0-40.0) % Billings % (Auto) 8.4 (0.0-10.0) % Eos % (Auto) 2.9 (0.0-4.0) % Baso % (Auto) 0.8 (0.0-2.0) % Neut # (Auto) 7.4 H (1.8-7.0) K/uL Lymph # (Auto) 1.3 (1.0-4.3) K/uL Billings # (Auto) 0.8 (0.0-0.8) K/uL Eos # (Auto) 0.3 (0.0-0.7) K/uL Baso # (Auto) 0.1 (0.0-0.2) K/uL Neutrophils % (Manual) (42-75) % Lymphocytes % (Manual) (20-50) % Monocytes % (Manual) (0-10) % Basophils % (Manual) (0-2) % Platelet Estimate (NORMAL) Large Platelets Anisocytosis (manual) PT (9.8-13.1) Seconds INR APTT (25.6-37.1) Seconds pO2 (30-55) mm/Hg VBG pH (7.32-7.43) VBG pCO2 (40-60) mmHg VBG HCO3 mmol/L VBG Total CO2 (22-28) mmol/L VBG O2 Sat (Calc) (40-65) % VBG Base Excess (0.0-2.0) mmol/L VBG Potassium (3.6-5.2) mmol/L Glucose (65-105) mg/dL Lactate (0.7-2.1) mmol/L FiO2 % Sodium 137 (132-148) mmol/l Potassium 4.3 (3.6-5.0) MMOL/L Chloride 103 (98-107) mmol/L Carbon Dioxide 25 (22-30) mmol/L Anion Gap 13 (10-20) BUN 34 H (7-17) mg/dl Creatinine 1.7 H (0.7-1.2) mg/dl Est GFR ( Amer) 35 Est GFR (Non-Af Amer) 29 POC Glucose (mg/dL) 174 H (65-110) mg/dL Random Glucose 155 H (65-105) mg/dL Hemoglobin A1c (4.2-6.5) % Calcium 9.8 (8.4-10.2) mg/dL Phosphorus 3.9 (2.5-4.5) mg/dl Magnesium 1.9 (1.6-2.3) MG/DL Total Bilirubin 0.9 (0.2-1.3) mg/dl AST 28 (14-36) U/L ALT 29 (9-52) U/L Alkaline Phosphatase 88 (38-126) U/L Troponin I 0.0150 (0.00-0.120) ng/mL Total Protein 6.7 (6.3-8.2) G/DL Albumin 3.9 (3.5-5.0) g/dL Globulin 2.8 (2.2-3.9) gm/dL Albumin/Globulin Ratio 1.4 (1.0-2.1) Triglycerides (0-149) mg/DL Cholesterol (0-199) mg/dL LDL Cholesterol Direct (0-129) mg/dL HDL Cholesterol (30-70) MG/DL TSH 3rd Generation (0.46-4.68) mIU/ML Venous Blood Potassium (3.6-5.2) mmol/L Laboratory Results - last 24 hr 11/19/18 11/19/18 11/19/18 12:09 12:18 12:18 WBC 9.9 RBC 3.74 L Hgb 12.2 Hct 35.8 MCV 95.8 MCH 32.6 H MCHC 34.0 RDW 13.2 Plt Count 247 MPV 8.0 Neut % (Auto) 75.1 H Lymph % (Auto) 12.8 L Billings % (Auto) 8.4 Eos % (Auto) 2.9 Baso % (Auto) 0.8 Neut # (Auto) 7.4 H Lymph # (Auto) 1.3 Billings # (Auto) 0.8 Eos # (Auto) 0.3 Baso # (Auto) 0.1 Neutrophils % (Manual) Lymphocytes % (Manual) Monocytes % (Manual) Basophils % (Manual) Platelet Estimate Large Platelets Anisocytosis (manual) PT INR APTT pO2 VBG pH VBG pCO2 VBG HCO3 VBG Total CO2 VBG O2 Sat (Calc) VBG Base Excess VBG Potassium Glucose Lactate FiO2 Sodium 137 Potassium 4.3 Chloride 103 Carbon Dioxide 25 Anion Gap 13 BUN 34 H Creatinine 1.7 H Est GFR ( Amer) 35 Est GFR (Non-Af Amer) 29 POC Glucose (mg/dL) 174 H Random Glucose 155 H Hemoglobin A1c Calcium 9.8 Phosphorus 3.9 Magnesium 1.9 Total Bilirubin 0.9 AST 28 ALT 29 Alkaline Phosphatase 88 Troponin I 0.0150 Total Protein 6.7 Albumin 3.9 Globulin 2.8 Albumin/Globulin Ratio 1.4 Triglycerides Cholesterol LDL Cholesterol Direct HDL Cholesterol TSH 3rd Generation Venous Blood Potassium 11/19/18 11/19/18 11/19/18 12:18 14:35 16:50 WBC RBC Hgb Hct MCV MCH MCHC RDW Plt Count MPV Neut % (Auto) Lymph % (Auto) Billings % (Auto) Eos % (Auto) Baso % (Auto) Neut # (Auto) Lymph # (Auto) Billings # (Auto) Eos # (Auto) Baso # (Auto) Neutrophils % (Manual) Lymphocytes % (Manual) Monocytes % (Manual) Basophils % (Manual) Platelet Estimate Large Platelets Anisocytosis (manual) PT 11.3 INR 1.0 APTT 28.6 pO2 31 VBG pH 7.33 VBG pCO2 42 VBG HCO3 20.9 VBG Total CO2 23.4 VBG O2 Sat (Calc) 61.8 VBG Base Excess -3.7 L VBG Potassium 4.6 Glucose 121 H Lactate 2.2 H FiO2 21.0 Sodium 136.0 Potassium Chloride 110.0 H Carbon Dioxide Anion Gap BUN Creatinine Est GFR ( Amer) Est GFR (Non-Af Amer) POC Glucose (mg/dL) Random Glucose Hemoglobin A1c Calcium Phosphorus Magnesium Total Bilirubin AST ALT Alkaline Phosphatase Troponin I < 0.0120 Total Protein Albumin Globulin Albumin/Globulin Ratio Triglycerides Cholesterol LDL Cholesterol Direct HDL Cholesterol TSH 3rd Generation 3.36 Venous Blood Potassium 4.6 11/19/18 11/20/18 11/20/18 16:50 04:25 04:25 WBC 10.7 RBC 3.93 Hgb 12.9 Hct 38.9 MCV 98.8 D MCH 32.8 H MCHC 33.2 RDW 13.4 Plt Count 167 MPV 9.0 Neut % (Auto) 80.8 H Lymph % (Auto) 9.6 L Billings % (Auto) 7.0 Eos % (Auto) 1.4 Baso % (Auto) 1.2 Neut # (Auto) 8.7 H Lymph # (Auto) 1.0 Billings # (Auto) 0.8 Eos # (Auto) 0.1 Baso # (Auto) 0.1 Neutrophils % (Manual) 86 H Lymphocytes % (Manual) 8 L Monocytes % (Manual) 5 Basophils % (Manual) 1 Platelet Estimate Normal Large Platelets Present Anisocytosis (manual) Slight PT INR APTT pO2 VBG pH VBG pCO2 VBG HCO3 VBG Total CO2 VBG O2 Sat (Calc) VBG Base Excess VBG Potassium Glucose Lactate FiO2 Sodium 136 Potassium 4.0 Chloride 105 Carbon Dioxide 21 L Anion Gap 14 BUN 26 H Creatinine 1.3 H Est GFR ( Amer) 47 Est GFR (Non-Af Amer) 39 POC Glucose (mg/dL) Random Glucose 132 H Hemoglobin A1c 6.4 Calcium 9.8 Phosphorus 2.8 Magnesium 1.8 Total Bilirubin 0.9 AST 100 H D ALT 121 H D Alkaline Phosphatase 105 Troponin I 0.0130 Total Protein 6.7 Albumin 3.9 Globulin 2.8 Albumin/Globulin Ratio 1.4 Triglycerides 171 H Cholesterol 204 H LDL Cholesterol Direct 129 HDL Cholesterol 54 TSH 3rd Generation Venous Blood Potassium Radiology Impressions: Radiology Impressions Chest X-Ray 11/19/18 12:15 IMPRESSION: No active disease. Head CT 11/19/18 13:48 IMPRESSION: No acute intracranial hemorrhage. Moderate to fairly significant chronic white matter ischemic changes. There is also some extension of these changes into the white matter tracts of both basal nuclei with scattered more discrete chronic bilateral basal nuclei lacunar type infarcts. Moderate fairly significant central volume loss. There are a few bubbles of air in the regions of both cavernous sinuses. More significant subcutaneous air scattered about the frontal scalp at the level of the forehead both infratemporal fossa and frontotemporal scalp regions left greater than right. Findings could be secondary to a recent intravenous injection contaminated with air. Clinical correlation recommended to exclude the possibility of recent trauma.. EKG/Cardiology Studies: Cardiology / EKG Studies 11/19/18 12:14 ELECTROCARDIOGRAM Stat Comment: Mode Of Transportation: Reason For Exam: needed 11/19/18 12:37 ELECTROCARDIOGRAM Stat Comment: Mode Of Transportation: Reason For Exam: needed 11/20/18 08:00 EKG [ELECTROCARDIOGRAM] Routine Comment: Mode Of Transportation: PORTABLE Reason For Exam: low heart rate Fingerstick Blood Sugar Results: 176 Critical Care Progress Note - Nutrition Nutrition: Nutrition Category Date Time Status Heart Healthy Diet [DIET] Diets 11/20/18 Breakfast Active Assessment/Plan - Assessment and Plan (Free Text) Assessment: Pt is an 83 y/o female with hx of Dementia, HTN, HLD, Atrial Fibrillation, Chronic Sinusitis brought to ED by EMS for pre-syncopal episodes associated with vomiting, noted to be Bradycardic HR in 30's w/ EKG demonstrating +junctional rhythms, received 1 dose of Atropine with slight improvement of HR. Admitted to ICU for close cardiac monitoring. Neuro - Hx of Dementia; will hold Memantine as acetylcholinesterase inhibitor effect may contribute to Bradycardia - Head CT: No acute intracranial hemorrhage, chronic ischemic changes - AAO x3 Cardio - Symptomatic Bradycardia w/ HR in 30's S/P Atropine x1 in ED - EKG on admission: HR 45, Atrial Fibrillation, +Junctional rhythms, no ischemic changes - Has underlying Hx of Afibb, possibly paroxysmal - Bradycardia likely medication induced as pt is currently on multiple AV silvia blocking agents (Metroprolol, Coreg, Cardizem) - AV silvia blocking medication held and HR improved - Differential Diagnosis includes:Medication induced (polypharmacy), Inferior Wall Structural dysfunction, SA node or AV silvia dysfunction, Sick Sinus Syndrome, Hypothyroidism, Vestibular disease, Gastritis induced bradycardia via vagal nerve stimulation - Continuous Cardiac Monitoring - Echo report: LVEF 60-65% mild concentric LVH, mild MR and TR - C/W ASA, Statin, and Losartan. - Cardiac Electrophysicist Dr. Newell on board - Inclusion [employer] Education [employer], Dr. Mcclellnad on board Pulm - Saturating 95-99% on Rm air Renal - Crea 1.7 (baseline unknown) improving - YUNI vs CKD - IV fluids started GI - Pepcid for possible Gastritis - Liquid diet, advance as tolerated - Mild transminitis, statin induced? unknown, will continue to monitor Endocrine - TSH normal and Hga1c 6.0 PPx - DVT: Lovenox Discussed case with Dr. Jaylen Tejada PGY2 <Aron York - Last Filed: 11/20/18 12:21> CCU Objective - Vital Signs / Intake & Output Vital Signs (Last 4 hours): Vital Signs Pulse BP 11/20/18 10:09 69 170/79 H Intake and Output (Last 8hrs): Intake & Output 11/19/18 11/20/18 11/20/18 22:59 06:59 14:59 Intake Total 2310 520 180 Output Total 550 2250 900 Balance 1760 -1730 -720 Weight 172 lb 166 lb Intake: IV 2160 320 80 Oral 150 200 100 Output: Urine 550 2250 900 Urine, Voided 550 2250 900 - Medications Active Medications: Active Medications Generic Name Dose Route Start Last Admin Trade Name Javadq PRN Reason Stop Dose Admin Aspirin 81 mg 11/20/18 09:00 11/20/18 08:35 Ecotrin PO 81 mg DAILY COURTNEY Administration Atorvastatin Calcium 40 mg 11/19/18 22:00 11/19/18 21:49 Lipitor PO 40 mg HS COURTNEY Administration Enoxaparin Sodium 30 mg 11/20/18 09:00 11/20/18 08:35 Lovenox SC 30 mg DAILY COURTNEY Administration Protocol Famotidine 40 mg 11/19/18 16:30 11/20/18 08:37 Pepcid PO 40 mg DAILY COURTNEY Administration Potassium Chloride/Dextrose/Sod Cl 1,000 mls @ 40 mls/hr 11/19/18 16:15 11/19/18 17:02 Potassium Chl 20 Meq In D5-1/2ns IV 11/20/18 16:05 40 mls/hr .Q24H COURTNEY Administration Losartan Potassium 25 mg 11/20/18 09:00 11/20/18 10:09 Cozaar PO 25 mg DAILY COURTNEY Administration - Patient Studies Lab Studies: Lab Studies 11/20/18 11/20/18 11/19/18 Range/Units 04:25 04:25 16:50 WBC 10.7 (4.8-10.8) K/uL RBC 3.93 (3.80-5.20) Mil/uL Hgb 12.9 (12.0-16.0) g/dL Hct 38.9 (34.0-47.0) % MCV 98.8 D (81.0-99.0) fl MCH 32.8 H (27.0-31.0) pg MCHC 33.2 (33.0-37.0) g/dL RDW 13.4 (11.5-14.5) % Plt Count 167 (130-400) K/uL MPV 9.0 (7.2-11.7) fl Neut % (Auto) 80.8 H (50.0-75.0) % Lymph % (Auto) 9.6 L (20.0-40.0) % Billings % (Auto) 7.0 (0.0-10.0) % Eos % (Auto) 1.4 (0.0-4.0) % Baso % (Auto) 1.2 (0.0-2.0) % Neut # (Auto) 8.7 H (1.8-7.0) K/uL Lymph # (Auto) 1.0 (1.0-4.3) K/uL Billings # (Auto) 0.8 (0.0-0.8) K/uL Eos # (Auto) 0.1 (0.0-0.7) K/uL Baso # (Auto) 0.1 (0.0-0.2) K/uL Neutrophils % (Manual) 86 H (42-75) % Lymphocytes % (Manual) 8 L (20-50) % Monocytes % (Manual) 5 (0-10) % Basophils % (Manual) 1 (0-2) % Platelet Estimate Normal (NORMAL) Large Platelets Present Anisocytosis (manual) Slight PT (9.8-13.1) Seconds INR APTT (25.6-37.1) Seconds pO2 (30-55) mm/Hg VBG pH (7.32-7.43) VBG pCO2 (40-60) mmHg VBG HCO3 mmol/L VBG Total CO2 (22-28) mmol/L VBG O2 Sat (Calc) (40-65) % VBG Base Excess (0.0-2.0) mmol/L VBG Potassium (3.6-5.2) mmol/L Glucose (65-105) mg/dL Lactate (0.7-2.1) mmol/L FiO2 % Sodium 136 (132-148) mmol/l Potassium 4.0 (3.6-5.0) MMOL/L Chloride 105 (98-107) mmol/L Carbon Dioxide 21 L (22-30) mmol/L Anion Gap 14 (10-20) BUN 26 H (7-17) mg/dl Creatinine 1.3 H (0.7-1.2) mg/dl Est GFR ( Amer) 47 Est GFR (Non-Af Amer) 39 Random Glucose 132 H (65-105) mg/dL Hemoglobin A1c 6.4 (4.2-6.5) % Calcium 9.8 (8.4-10.2) mg/dL Phosphorus 2.8 (2.5-4.5) mg/dl Magnesium 1.8 (1.6-2.3) MG/DL Total Bilirubin 0.9 (0.2-1.3) mg/dl AST 100 H D (14-36) U/L ALT 121 H D (9-52) U/L Alkaline Phosphatase 105 (38-126) U/L Troponin I 0.0130 (0.00-0.120) ng/mL Total Protein 6.7 (6.3-8.2) G/DL Albumin 3.9 (3.5-5.0) g/dL Globulin 2.8 (2.2-3.9) gm/dL Albumin/Globulin Ratio 1.4 (1.0-2.1) Triglycerides 171 H (0-149) mg/DL Cholesterol 204 H (0-199) mg/dL LDL Cholesterol Direct 129 (0-129) mg/dL HDL Cholesterol 54 (30-70) MG/DL TSH 3rd Generation (0.46-4.68) mIU/ML Venous Blood Potassium (3.6-5.2) mmol/L 11/19/18 11/19/18 11/19/18 Range/Units 16:50 14:35 12:18 WBC (4.8-10.8) K/uL RBC (3.80-5.20) Mil/uL Hgb (12.0-16.0) g/dL Hct (34.0-47.0) % MCV (81.0-99.0) fl MCH (27.0-31.0) pg MCHC (33.0-37.0) g/dL RDW (11.5-14.5) % Plt Count (130-400) K/uL MPV (7.2-11.7) fl Neut % (Auto) (50.0-75.0) % Lymph % (Auto) (20.0-40.0) % Billings % (Auto) (0.0-10.0) % Eos % (Auto) (0.0-4.0) % Baso % (Auto) (0.0-2.0) % Neut # (Auto) (1.8-7.0) K/uL Lymph # (Auto) (1.0-4.3) K/uL Billings # (Auto) (0.0-0.8) K/uL Eos # (Auto) (0.0-0.7) K/uL Baso # (Auto) (0.0-0.2) K/uL Neutrophils % (Manual) (42-75) % Lymphocytes % (Manual) (20-50) % Monocytes % (Manual) (0-10) % Basophils % (Manual) (0-2) % Platelet Estimate (NORMAL) Large Platelets Anisocytosis (manual) PT 11.3 (9.8-13.1) Seconds INR 1.0 APTT 28.6 (25.6-37.1) Seconds pO2 31 (30-55) mm/Hg VBG pH 7.33 (7.32-7.43) VBG pCO2 42 (40-60) mmHg VBG HCO3 20.9 mmol/L VBG Total CO2 23.4 (22-28) mmol/L VBG O2 Sat (Calc) 61.8 (40-65) % VBG Base Excess -3.7 L (0.0-2.0) mmol/L VBG Potassium 4.6 (3.6-5.2) mmol/L Glucose 121 H (65-105) mg/dL Lactate 2.2 H (0.7-2.1) mmol/L FiO2 21.0 % Sodium 136.0 (132-148) mmol/l Potassium (3.6-5.0) MMOL/L Chloride 110.0 H (98-107) mmol/L Carbon Dioxide (22-30) mmol/L Anion Gap (10-20) BUN (7-17) mg/dl Creatinine (0.7-1.2) mg/dl Est GFR ( Amer) Est GFR (Non-Af Amer) Random Glucose (65-105) mg/dL Hemoglobin A1c (4.2-6.5) % Calcium (8.4-10.2) mg/dL Phosphorus (2.5-4.5) mg/dl Magnesium (1.6-2.3) MG/DL Total Bilirubin (0.2-1.3) mg/dl AST (14-36) U/L ALT (9-52) U/L Alkaline Phosphatase (38-126) U/L Troponin I < 0.0120 (0.00-0.120) ng/mL Total Protein (6.3-8.2) G/DL Albumin (3.5-5.0) g/dL Globulin (2.2-3.9) gm/dL Albumin/Globulin Ratio (1.0-2.1) Triglycerides (0-149) mg/DL Cholesterol (0-199) mg/dL LDL Cholesterol Direct (0-129) mg/dL HDL Cholesterol (30-70) MG/DL TSH 3rd Generation 3.36 (0.46-4.68) mIU/ML Venous Blood Potassium 4.6 (3.6-5.2) mmol/L 11/19/18 11/19/18 Range/Units 12:18 12:18 WBC 9.9 (4.8-10.8) K/uL RBC 3.74 L (3.80-5.20) Mil/uL Hgb 12.2 (12.0-16.0) g/dL Hct 35.8 (34.0-47.0) % MCV 95.8 (81.0-99.0) fl MCH 32.6 H (27.0-31.0) pg MCHC 34.0 (33.0-37.0) g/dL RDW 13.2 (11.5-14.5) % Plt Count 247 (130-400) K/uL MPV 8.0 (7.2-11.7) fl Neut % (Auto) 75.1 H (50.0-75.0) % Lymph % (Auto) 12.8 L (20.0-40.0) % Bill[place] % (Auto) 8.4 (0.0-10.0) % Eos % (Auto) 2.9 (0.0-4.0) % Baso % (Auto) 0.8 (0.0-2.0) % Neut # (Auto) 7.4 H (1.8-7.0) K/uL Lymph # (Auto) 1.3 (1.0-4.3) K/uL Billings # (Auto) 0.8 (0.0-0.8) K/uL Eos # (Auto) 0.3 (0.0-0.7) K/uL Baso # (Auto) 0.1 (0.0-0.2) K/uL Neutrophils % (Manual) (42-75) % Lymphocytes % (Manual) (20-50) % Monocytes % (Manual) (0-10) % Basophils % (Manual) (0-2) % Platelet Estimate (NORMAL) Large Platelets Anisocytosis (manual) PT (9.8-13.1) Seconds INR APTT (25.6-37.1) Seconds pO2 (30-55) mm/Hg VBG pH (7.32-7.43) VBG pCO2 (40-60) mmHg VBG HCO3 mmol/L VBG Total CO2 (22-28) mmol/L VBG O2 Sat (Calc) (40-65) % VBG Base Excess (0.0-2.0) mmol/L VBG Potassium (3.6-5.2) mmol/L Glucose (65-105) mg/dL Lactate (0.7-2.1) mmol/L FiO2 % Sodium 137 (132-148) mmol/l Potassium 4.3 (3.6-5.0) MMOL/L Chloride 103 (98-107) mmol/L Carbon Dioxide 25 (22-30) mmol/L Anion Gap 13 (10-20) BUN 34 H (7-17) mg/dl Creatinine 1.7 H (0.7-1.2) mg/dl Est GFR ( Amer) 35 Est GFR (Non-Af Amer) 29 Random Glucose 155 H (65-105) mg/dL Hemoglobin A1c (4.2-6.5) % Calcium 9.8 (8.4-10.2) mg/dL Phosphorus 3.9 (2.5-4.5) mg/dl Magnesium 1.9 (1.6-2.3) MG/DL Total Bilirubin 0.9 (0.2-1.3) mg/dl AST 28 (14-36) U/L ALT 29 (9-52) U/L Alkaline Phosphatase 88 (38-126) U/L Troponin I 0.0150 (0.00-0.120) ng/mL Total Protein 6.7 (6.3-8.2) G/DL Albumin 3.9 (3.5-5.0) g/dL Globulin 2.8 (2.2-3.9) gm/dL Albumin/Globulin Ratio 1.4 (1.0-2.1) Triglycerides (0-149) mg/DL Cholesterol (0-199) mg/dL LDL Cholesterol Direct (0-129) mg/dL HDL Cholesterol (30-70) MG/DL TSH 3rd Generation (0.46-4.68) mIU/ML Venous Blood Potassium (3.6-5.2) mmol/L Laboratory Results - last 24 hr 11/19/18 11/19/18 11/19/18 12:18 12:18 12:18 WBC 9.9 RBC 3.74 L Hgb 12.2 Hct 35.8 MCV 95.8 MCH 32.6 H MCHC 34.0 RDW 13.2 Plt Count 247 MPV 8.0 Neut % (Auto) 75.1 H Lymph % (Auto) 12.8 L Bill[place] % (Auto) 8.4 Eos % (Auto) 2.9 Baso % (Auto) 0.8 Neut # (Auto) 7.4 H Lymph # (Auto) 1.3 Bill[place] # (Auto) 0.8 Eos # (Auto) 0.3 Baso # (Auto) 0.1 Neutrophils % (Manual) Lymphocytes % (Manual) Monocytes % (Manual) Basophils % (Manual) Platelet Estimate Large Platelets Anisocytosis (manual) PT 11.3 INR 1.0 APTT 28.6 pO2 VBG pH VBG pCO2 VBG HCO3 VBG Total CO2 VBG O2 Sat (Calc) VBG Base Excess VBG Potassium Glucose Lactate FiO2 Sodium 137 Potassium 4.3 Chloride 103 Carbon Dioxide 25 Anion Gap 13 BUN 34 H Creatinine 1.7 H Est GFR ( Amer) 35 Est GFR (Non-Af Amer) 29 Random Glucose 155 H Hemoglobin A1c Calcium 9.8 Phosphorus 3.9 Magnesium 1.9 Total Bilirubin 0.9 AST 28 ALT 29 Alkaline Phosphatase 88 Troponin I 0.0150 Total Protein 6.7 Albumin 3.9 Globulin 2.8 Albumin/Globulin Ratio 1.4 Triglycerides Cholesterol LDL Cholesterol Direct HDL Cholesterol TSH 3rd Generation Venous Blood Potassium 11/19/18 11/19/18 11/19/18 14:35 16:50 16:50 WBC RBC Hgb Hct MCV MCH MCHC RDW Plt Count MPV Neut % (Auto) Lymph % (Auto) [place] % (Auto) Eos % (Auto) Baso % (Auto) Neut # (Auto) Lymph # (Auto) Bill[place] # (Auto) Eos # (Auto) Baso # (Auto) Neutrophils % (Manual) Lymphocytes % (Manual) Monocytes % (Manual) Basophils % (Manual) Platelet Estimate Large Platelets Anisocytosis (manual) PT INR APTT pO2 31 VBG pH 7.33 VBG pCO2 42 VBG HCO3 20.9 VBG Total CO2 23.4 VBG O2 Sat (Calc) 61.8 VBG Base Excess -3.7 L VBG Potassium 4.6 Glucose 121 H Lactate 2.2 H FiO2 21.0 Sodium 136.0 Potassium Chloride 110.0 H Carbon Dioxide Anion Gap BUN Creatinine Est GFR ( Amer) Est GFR (Non-Af Amer) Random Glucose Hemoglobin A1c 6.4 Calcium Phosphorus Magnesium Total Bilirubin AST ALT Alkaline Phosphatase Troponin I < 0.0120 Total Protein Albumin Globulin Albumin/Globulin Ratio Triglycerides Cholesterol LDL Cholesterol Direct HDL Cholesterol TSH 3rd Generation 3.36 Venous Blood Potassium 4.6 11/20/18 11/20/18 04:25 04:25 WBC 10.7 RBC 3.93 Hgb 12.9 Hct 38.9 MCV 98.8 D MCH 32.8 H MCHC 33.2 RDW 13.4 Plt Count 167 MPV 9.0 Neut % (Auto) 80.8 H Lymph % (Auto) 9.6 L [place] % (Auto) 7.0 Eos % (Auto) 1.4 Baso % (Auto) 1.2 Neut # (Auto) 8.7 H Lymph # (Auto) 1.0 [place] # (Auto) 0.8 Eos # (Auto) 0.1 Baso # (Auto) 0.1 Neutrophils % (Manual) 86 H Lymphocytes % (Manual) 8 L Monocytes % (Manual) 5 Basophils % (Manual) 1 Platelet Estimate Normal Large Platelets Present Anisocytosis (manual) Slight PT INR APTT pO2 VBG pH VBG pCO2 VBG HCO3 VBG Total CO2 VBG O2 Sat (Calc) VBG Base Excess VBG Potassium Glucose Lactate FiO2 Sodium 136 Potassium 4.0 Chloride 105 Carbon Dioxide 21 L Anion Gap 14 BUN 26 H Creatinine 1.3 H Est GFR ( Amer) 47 Est GFR (Non-Af Amer) 39 Random Glucose 132 H Hemoglobin A1c Calcium 9.8 Phosphorus 2.8 Magnesium 1.8 Total Bilirubin 0.9 AST 100 H D ALT 121 H D Alkaline Phosphatase 105 Troponin I 0.0130 Total Protein 6.7 Albumin 3.9 Globulin 2.8 Albumin/Globulin Ratio 1.4 Triglycerides 171 H Cholesterol 204 H LDL Cholesterol Direct 129 HDL Cholesterol 54 TSH 3rd Generation Venous Blood Potassium Radiology Impressions: Radiology Impressions Chest X-Ray 11/19/18 12:15 IMPRESSION: No active disease. Head CT 11/19/18 13:48 IMPRESSION: No acute intracranial hemorrhage. Moderate to fairly significant chronic white matter ischemic changes. There is also some extension of these changes into the white matter tracts of both basal nuclei with scattered more discrete chronic bilateral basal nuclei lacunar type infarcts. Moderate fairly significant central volume loss. There are a few bubbles of air in the regions of both cavernous sinuses. More significant subcutaneous air scattered about the frontal scalp at the level of the forehead both infratemporal fossa and frontotemporal scalp regions left greater than right. Findings could be secondary to a recent intravenous injection contaminated with air. Clinical correlation recommended to exclude the possibility of recent trauma.. Chest X-Ray 11/20/18 02:20 IMPRESSION: No active disease. EKG/Cardiology Studies: Cardiology / EKG Studies 11/19/18 12:14 ELECTROCARDIOGRAM Stat Comment: Mode Of Transportation: Reason For Exam: needed 11/19/18 12:37 ELECTROCARDIOGRAM Stat Comment: Mode Of Transportation: Reason For Exam: needed 11/20/18 08:00 EKG [ELECTROCARDIOGRAM] Routine Comment: Mode Of Transportation: PORTABLE Reason For Exam: low heart rate Critical Care Progress Note - Nutrition Nutrition: Nutrition Category Date Time Status Heart Healthy Diet [DIET] Diets 11/20/18 Breakfast Active Attending/Attestation - Attestation I have personally seen and examined this patient.: Yes I have fully participated in the care of the patient.: Yes I have reviewed all pertinent clinical information: Yes Notes (Text): 11/20/18 12:17 I have seen and examined the patient. Medical records, lab studies, and imaging were reviewed by me and a management plan was formulated on multidisciplinary rounds with resident Dr. Tejada. I agree with their above documented assessment and plan. Patient is no longer bradycardic, once all silvia blocking agents were stopped. Awaiting decision of possible PPM placement. Would like to discuss with cardiology about possible ablation for her afib. Critical Care Time minutes. Multi-disciplinary rounds were performed with house staff, nursing, speech therapy, respiratory therapy, pharmacy and nutrition with integrated input from the primary team/attending and other consulting services. The documented time is cumulative and includes review of patient data/exams/labs/chart review and examination of the patient on rounds and throughout the day; time is exclusive of any procedures or teaching time.
--- NOTE | 2018-11-20 11:48 | CARD ---
APPROVED REPORT Date of service: 11/20/2018 EKG Measurement Heart [id number] <Conclusion> Normal sinus rhythm Normal Electrocardiogram
--- NOTE | 2018-11-20 11:59 | CARD ---
APPROVED REPORT Date of service: 11/19/2018 EKG Measurement Heart [id number] <Conclusion> Marked sinus bradycardia with competing junctional rhythm Nonspecific ST abnormality Abnormal ECG
--- NOTE | 2018-11-20 16:02 | MRI ---
Date of service: 11/20/2018 PROCEDURE: MRI BRAIN WITHOUT CONTRAST HISTORY: Assess subcutaneous emphysema rule out CVA COMPARISON: Comparison made with CT scan brain 11/19/2018. The a this TECHNIQUE: Multiplanar, multisequence MR images of the brain were obtained without intravenous contrast enhancement. FINDINGS: HEMORRHAGE: No acute parenchymal, subarachnoid or extra-axial hemorrhage. No evidence of hemosiderin deposition identified on gradient echo weighted sequence. DWI: There is a tiny acute cortical infarct in the right posterior occipito parietal watershed zone. In addition, there is a smaller faint area of restricted diffusion in the left posterior superior basal ganglia and lorenzo radiata junction which is felt to represent a small subacute to chronic infarct. BRAIN PARENCHYMA: Mild to moderate diffuse and confluent chronic periventricular white matter ischemic changes seen extending peripherally into the deep and subcortical white matter both cerebral hemispheres. Multiple more discrete varying sized round and elliptical shaped chronic infarcts are seen scattered about the deep and subcortical white matter both cerebral hemispheres as well as both basal nuclei. VENTRICLES: No obstructive hydrocephalus. CRANIUM: Unremarkable. ORBITS: Changes of bilateral cataract surgery again noted.. PARANASAL SINUSES/MASTOIDS: Postoperative changes of partial right-sided ethmoidectomy and medial wall antrostomy defect right maxillary antrum less well seen on this exam compared to high-resolution CT scan. Redemonstrated is moderate mucosal thickening right maxillary sinus. There is also minor mucosal thickening within the sphenoid sinus and a few ethmoid air cells. VASCULAR SYSTEM: Visualized major vascular flow voids at skull base patent. OTHER FINDINGS: Previously seen scalp subcutaneous emphysema and apparent air in the region of the cavernous sinuses on prior CT scan not appreciated on this study. IMPRESSION: There is a small acute in the cortical infarct right posterior occipito parietal watershed zone. There is also a subacute to chronic small infarct left posterior superior basal nuclei/lorenzo radiata junction. Moderate chronic white matter and lesser basal nuclei ischemic changes. Moderate generalized volume loss. Findings discussed with Dr. York at approximately 3:50 p.m. with written down and read back verification.
--- NOTE | 2018-11-20 20:07 | CON ---
DATE: 11/20/2018 INPATIENT ELECTROPHYSIOLOGY CONSULTATION LOCATION: The patient was seen in the ICU. REQUESTING PHYSICIAN: Hernando Taylor MD REASON FOR EVALUATION: 1. Sick sinus syndrome. 2. Symptomatic bradycardia. 3. Atrial fibrillation. 4. Hypertension. Thank you very much for this consult. HISTORY OF PRESENT ILLNESS: Mrs. Heidi Talley is a very pleasant 83-year-old female with past medical history significant for hypertension, paroxysmal atrial fibrillation, significant GI bleed, and hyperlipidemia, who presents to [facility] on the date of admission, 11/19/2018, with two near syncopal spells, not resulting in trauma. The patient was not feeling well, albeit was able to sit down prior to being passed out. The patient was found to have severe bradycardia with heart rate in the 30s, which did respond to some degree 0.5 mL of atropine. The patient was seen in the emergency department and brought upstairs to the ICU with pacer pads for further monitoring. The patient was on Toprol-XL 100 mg daily, Coreg 6.25 mg twice a day, and Cardizem 300 mg daily chronically as per the patient. The patient is originally from [place] and is visiting and is seen by both the harbormaster as well as Internal Medicine person there and has been following up regularly. Of note, the patient has had sounds like life threatening GI bleed, which occurred when she was in [place] visiting and required 9 units of blood as per the patient. The patient had been on Xarelto at the time and obviously since been discontinued. She remains on a baby aspirin. In terms of symptoms, no nausea, vomiting, diarrhea, or constipation. Does admit to some mild vague fatigue type symptoms. She denies chest pain, palpitations or prior episodes of syncope. PAST MEDICAL HISTORY: As mentioned in the history of present illness. PAST SURGICAL HISTORY: Significant for hysterectomy, bilateral total knee replacement, and hernia repair. SOCIAL HISTORY: Significant for prior smoking. The patient drinks alcohol daily, two drinks a day. No drug abuse. MEDICATIONS: Currently include Toprol-XL 100 mg daily, Namenda 5 mg p.o. every 12 hours, Cozaar 100 mg p.o. daily, Coreg 6.25 mg p.o. b.i.d., Lipitor 40 mg p.o. daily, aspirin 81 mg daily, and Cardizem CD 300 mg once a day. PHYSICAL EXAMINATION: GENERAL: The patient appears alert and oriented x3, does exhibit some mild confusion and repeated same answers in questions at times. No acute distress, however. VITAL SIGNS: Currently heart rate is 67, blood pressure is 155/83 with respiratory rate of 13. On admission to the ICU at 02:00 a.m., pulse was 56, blood pressure 145/91 with a heart rate of 12. HEENT: Examination of her head is normocephalic and atraumatic. She has no dentition. Extraocular movements are intact. Pupils are equally round and reactive to light and accommodation. CHEST: Clear to auscultation bilaterally. No rales or wheezes are noted. CARDIOVASCULAR: Regular rate and rhythm. S1 and S2. No S3 or S4. PMI does not appear to be displaced; 2/6 systolic ejection murmur is heard. ABDOMEN: Soft, nontender, and nondistended. Positive bowel sounds. EXTREMITIES: No cyanosis, clubbing, or edema. NEUROLOGICAL: She is alert and oriented x2 without any focal deficits. PSYCHIATRY: She appears to be intact. SKIN: Appears to be normal. LABORATORY DATA: On review of , the patient has a white count of 10.7, H&H of 12.9 and 38.9, and platelets of 167. INR is 1. PT is 11.3. Sodium is 136, potassium of 4, chloride of 105, carbon dioxide of 21, BUN and creatinine is 26 and 1.3 respectively. Glucose is 132. ALT and AST is initially 100/121, prior to that it was 28/29. Cholesterol is 204 and LDL cholesterol is 129. TSH is within normal limits. EKG on presentation shows severe sinus bradycardia with junctional escape beats with heart rate of 45. There is downsloping of ST segments on available EKG at V5 and V6, which was initially found, but subsequently on EKG from 11/20/2018 at 07:14 is no longer present. Echocardiogram, which was performed shows that the left ventricle is of normal size, mild concentric left ventricular hypertrophy is seen. There is a sigmoid septum; EF is 60% to 65%. Left atrium is mildly dilated. Right atrium is normal in size. Aortic valve appears to be normal. Right ventricle is normal in size. Aortic valve appears to be normal in structure. No stenosis or regurgitation or vegetation. Mitral valve also appears to be of normal size. Tricuspid valve is normal in structure. Right ventricular systolic pressure is elevated at 28 mmHg. Aorta appears to be intact. Pericardial effusion is not present. ASSESSMENT AND PLAN: 1. Sick sinus syndrome. The patient was on multiple atrioventricular silvia blockers including 2 beta blockers and a high dose calcium channel arielle. At this point with removal of these agents, the patient's heart rate appears to be within normal limits. We will obtain old records. My impression is that the patient likely has episodes of atrial fibrillation with very rapid ventricular response, requiring high dose atrioventricular silvia blockade. Ideally, this type of patient would likely benefit from a permanent pacemaker. The patient is traveling from outside. It is unclear what her long and short term plans are. An option would be to put in a pacemaker here and restart her medications. Alternatively, if the patient/family is not in favor of undergoing permanent pacemaker implantation, the patient may be monitored for perhaps an additional 24 hours off all agents. If her heart rates do come up stably in the 80s and 90s, perhaps restarting Toprol-XL 50 mg p.o. daily probably would not be unreasonable because of a high likelihood of recurrence of atrial fibrillation with rapid ventricular response. I will discuss the case further with Dr. Taylor. 2. Atrial fibrillation. At this point, she is paroxysmal. The patient does have left ventricular hypertrophy making class I agents somewhat problematic especially if she is not going to follow up locally and be monitored closely. The patient does have some degree of acute kidney injury, which is likely secondary to low output in the setting of significant bradycardia where sotalol may be an option. Amiodarone also may be an option, but given the patients' sick sinus issues, that may also be difficult. At any rate, Xarelto had been trialled and the patient had significant bleeding. We will not suggest restarting anticoagulation. 3. Hypertension. Non rate slowing agents could be maximized as per the medical/cardiac team. Thank you for allowing me to participate in the care of your patient. Please do not hesitate to call if you have any questions in regards to her care. If there is a desire for pacemaker implantation, I will be notified. This can be scheduled during this inpatient hospital stay. This is weekend. Therefore, scheduling the procedure may be difficult in a timely fashion. Octavio Plascencia MD cc: Hernando Taylor MD; Zbigniew Desai MD
--- NOTE | 2018-11-20 20:42 | PN ---
DATE: 11/20/2018 SUBJECTIVE: The patient is back to normal sinus rhythm. She denies any dizziness. The patient was evaluated by Dr. Plascencia who discussed the case with me this morning and recommended a pacemaker placement. PHYSICAL EXAMINATION: VITAL SIGNS: Blood pressure 184/114, heart rate 78, temperature 98.1, respirations 17. HEENT: Normocephalic. CHEST: Clear. HEART: S1 and S2, regular. ABDOMEN: Soft. EXTREMITIES: No edema. LABORATORY DATA: Today's hemoglobin and hematocrit 12.9 and 38.9. White count and platelet count are within normal limits. Today's SMA-7: Sodium 136, potassium 4, chloride 105, CO2 of 21, glucose 132, BUN 26, creatinine 1.3. Today's EKG revealed normal sinus rhythm at a rate of 60. Echocardiographic study revealed mild concentric LVH with normal ejection fraction and grade 1 abnormal relaxation pattern, mild mitral insufficiency, and mild tricuspid insufficiency. ASSESSMENT: 1. Improved symptomatic bradycardia, status post two near syncopal episodes. 2. 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 Uncontrolled hypertension. 3. Chronic renal insufficiency. 4. Mild mitral and mild tricuspid insufficiencies. 5. History of paroxysmal atrial fibrillation. The patient was taken off Pradaxa after she developed massive gastrointestinal bleeding and required 9 units of packed red blood cell transfusion. RECOMMENDATIONS: Continue current Cozaar 25 mg daily, aspirin 81 mg once a day, Lipitor at 40 mg once a day, Pepcid 40 mg daily, subcutaneous Lovenox at 30 mg daily. The case was discussed at length with the patient's and son. Apparently, the scheduled flight for Friday has been postponed and will further discuss with Dr. Plascencia the possibility of having a permanent pacemaker placed while she is at [facility]. Hernando Taylor MD MTDD
[2018-11-21 05:56] LABS: BASO # 0.1 K/uL (0.0-0.2); BASO % 0.6 % (0.0-2.0); EOS # 0.2 K/uL (0.0-0.7); EOS % 1.8 % (0.0-4.0); LYMPH % 9.5 % (20.0-40.0); MEAN CELL VOLUME 92.9 fl (81.0-99.0); MEAN CORPUSCULAR HGB CONC 34.5 g/dL (33.0-37.0); MEAN PLATELET VOLUME 8.6 fl (7.2-11.7); MONO # 1.1 K/uL (0.0-0.8); MONO % 9.6 % (0.0-10.0); NEUT # 8.6 K/uL (1.8-7.0); NEUT % 78.5 % (50.0-75.0); NRBC % 0.1 % (0.0-0.0); RBC 4.38 Mil/uL (3.80-5.20); RED CELL DISTRIBUTION WIDTH 12.5 % (11.5-14.5)
[2018-11-21 05:57] LABS: BLOOD UREA NITROGEN 17 mg/dl (7-17); CALCIUM 10.4 mg/dL (8.4-10.2); GFR NON-AFRICAN AMERICAN 53
[2018-11-21] MEDS: Enoxaparin 30 mg Syringe SC SCH (08:41)
--- NOTE | 2018-11-21 11:08 | CP.CCUPN ---
CCU Subjective - Physician Review Events Since Last Encounter (Free Text): 11/21/18 11:05 alert and awake, no sob, family is at bedside, no palpitaion. in SR now, 80/m , BP stable , off BB and cardizem CCU Objective - Vital Signs / Intake & Output Vital Signs (Last 4 hours): Vital Signs Temp Pulse Resp BP Pulse Ox 11/21/18 09:39 96 H 138/76 11/21/18 08:41 85 184/99 H 11/21/18 08:40 85 184/99 H 11/21/18 07:58 98 F 79 25 H 202/130 H 96 Intake and Output (Last 8hrs): Intake & Output 11/20/18 11/21/18 11/21/18 22:59 06:59 14:59 Intake Total 160 0 350 Output Total 600 Balance -440 0 350 Weight 157 lb 14.4 oz Intake: IV 40 0 Oral 120 350 Output: Urine 600 Urine, Voided 600 Other: # Voids Urine, Voided 2 1 2 - Physical Exam Narrative Physical Exam (Free Text): 11/21/18 11:06 P/E Neck: No JVD Lungs: No ronchi, crackles Abdomen: soft, non-tender Ext: No edema Neuro: no focal signs Pupils: Positive for: PERRL Extroacular Muscles: Positive for: EOMI Conjunctiva: Positive for: Normal Mouth: Positive for: Moist Mucous Membranes Respiratory/Chest: Positive for: Clear to Auscultation. Negative for: Good Air Exchange, Respiratory Distress, Accessory Muscle Use, Wheezes, Rales Cardiovascular: Positive for: Regular Rate and Rhythm, Normal S1, S2. Negative for: Murmurs Abdomen: Positive for: Normal Bowel Sounds. Negative for: Tenderness Lower Extremity: Positive for: Normal Inspection Skin: Positive for: Warm Psychiatric: Positive for: Alert, Oriented x 3 - Medications Active Medications: Active Medications Generic Name Dose Route Start Last Admin Trade Name Freq PRN Reason Stop Dose Admin Aspirin 81 mg 11/20/18 09:00 11/21/18 08:41 Ecotrin PO 81 mg DAILY COURTNEY Administration Atorvastatin Calcium 40 mg 11/19/18 22:00 11/19/18 21:49 Lipitor PO 40 mg HS COURTNEY Administration Enoxaparin Sodium 30 mg 11/20/18 09:00 11/21/18 08:41 Lovenox SC 30 mg DAILY COURTNEY Administration Protocol Famotidine 40 mg 11/19/18 16:30 11/21/18 08:42 Pepcid PO 40 mg DAILY COURTNEY Administration Hydralazine HCl 25 mg 11/21/18 09:00 11/21/18 08:40 Apresoline PO 25 mg QID COURTNEY Administration Losartan Potassium 25 mg 11/20/18 09:00 11/21/18 08:41 Cozaar PO 25 mg DAILY COURTNEY Administration - Patient Studies Lab Studies: Lab Studies 11/21/18 11/21/18 Range/Units 04:06 04:06 WBC 11.0 H (4.8-10.8) K/uL RBC 4.38 (3.80-5.20) Mil/uL Hgb 14.0 (12.0-16.0) g/dL Hct 40.7 (34.0-47.0) % MCV 92.9 D (81.0-99.0) fl MCH 32.0 H (27.0-31.0) pg MCHC 34.5 (33.0-37.0) g/dL RDW 12.5 (11.5-14.5) % Plt Count 266 (130-400) K/uL MPV 8.6 (7.2-11.7) fl Neut % (Auto) 78.5 H (50.0-75.0) % Lymph % (Auto) 9.5 L (20.0-40.0) % [place] % (Auto) 9.6 (0.0-10.0) % Eos % (Auto) 1.8 (0.0-4.0) % Baso % (Auto) 0.6 (0.0-2.0) % Neut # (Auto) 8.6 H (1.8-7.0) K/uL Lymph # (Auto) 1.0 (1.0-4.3) K/uL [place] # (Auto) 1.1 H (0.0-0.8) K/uL Eos # (Auto) 0.2 (0.0-0.7) K/uL Baso # (Auto) 0.1 (0.0-0.2) K/uL Sodium 138 (132-148) mmol/l Potassium 3.6 (3.6-5.0) MMOL/L Chloride 101 (98-107) mmol/L Carbon Dioxide 30 (22-30) mmol/L Anion Gap 11 (10-20) BUN 17 (7-17) mg/dl Creatinine 1.0 (0.7-1.2) mg/dl Est GFR ( Amer) > 60 Est GFR (Non-Af Amer) 53 Random Glucose 121 H (65-105) mg/dL Calcium 10.4 H (8.4-10.2) mg/dL Laboratory Results - last 24 hr 11/21/18 11/21/18 04:06 04:06 WBC 11.0 H RBC 4.38 Hgb 14.0 Hct 40.7 MCV 92.9 D MCH 32.0 H MCHC 34.5 RDW 12.5 Plt Count 266 MPV 8.6 Neut % (Auto) 78.5 H Lymph % (Auto) 9.5 L [place] % (Auto) 9.6 Eos % (Auto) 1.8 Baso % (Auto) 0.6 Neut # (Auto) 8.6 H Lymph # (Auto) 1.0 [place] # (Auto) 1.1 H Eos # (Auto) 0.2 Baso # (Auto) 0.1 Sodium 138 Potassium 3.6 Chloride 101 Carbon Dioxide 30 Anion Gap 11 BUN 17 Creatinine 1.0 Est GFR ( Amer) > 60 Est GFR (Non-Af Amer) 53 Random Glucose 121 H Calcium 10.4 H Radiology Impressions: Radiology Impressions Brain MRI 11/19/18 17:12 IMPRESSION: There is a small acute in the cortical infarct right posterior occipito parietal watershed zone. There is also a subacute to chronic small infarct left posterior superior basal nuclei/lorenzo radiata junction. Moderate chronic white matter and lesser basal nuclei ischemic changes. Moderate generalized volume loss. Findings discussed with Dr. York at approximately 3:50 p.m. with written down and read back verification. Chest X-Ray 11/20/18 02:20 IMPRESSION: No active disease. Fingerstick Blood Sugar Results: 176 Critical Care Progress Note - Nutrition Nutrition: Nutrition Category Date Time Status Heart Healthy Diet [DIET] Diets 11/20/18 Breakfast Active Assessment/Plan - Assessment and Plan (Free Text) Assessment: ASSESSMENT AND Plan: Bradycardia, Improved, off BB and Cardizem - - was due to meds (Metroprolol, Coreg, Cardizem) - EKG on admission: HR 45, Atrial Fibrillation, +Junctional rhythms, no ischemic changes No HR 80/m - Echo: LVEF 60-65% mild concentric LVH, mild MR and TR - TSH wnl - troponin negative x3 - Antihypertensive Meds held for now - Continuous Cardiac Monitoring - transcutaneous pacer pads on standby - C/W ASA and Statin - Cardiac Electrophysicist Dr. Newell on board - Benefits Coordinator, Dr. Mcclelland on board YUNI vs CKD, baseline unknown - improving - GFR 39, - IV fluids PPx - DVT: Lovenox
--- NOTE | 2018-11-21 17:08 | CP.PCM.CON ---
History of Present Illness - History of Present Illness History of Present Illness: Neurology consult dictated. In brief, Miss Talley had a syncopal spell on night where she suddenly fell, with no dysarthria or aphasia. She came in with HR of 30, and afib, She was admitted to the ICU and MRI was done and read yesterday at 16:00. At this time, she was not a TPA candidate due to time of onset not known and stroke completion. ON exam today, the patietn only has minimal word finding difficulty, and right hand dysmetria. The patient has a history of GI bleed, and therefore was taken off xarelto. NIHSS: 2 Plan: 1. Telemetry 2. IV fluids ns 100 ccs per hour 3. aspirin 325 mg po daily 4. At this time, we cannot restart xarelto. 5. ECHO 6. CTA head and neck 7. Permissive htn 8. Cardiology consult. 9. Lipid profile 10. PT ST OT Thank you Dr. mills Neurology Past Patient History - Past Social History Smoking Status: Former Smoker - CARDIAC Hx Cardiac Disorders: Yes - NEUROLOGICAL Hx Dizziness: Yes - MUSCULOSKELETAL/RHEUMATOLOGICAL Hx Falls: No - GASTROINTESTINAL Hx Gastritis: Yes - PSYCHIATRIC Hx Substance Use: No - SURGICAL HISTORY Hx Surgeries: Yes Hx Musculoskeletal Surgery: Yes - ANESTHESIA Hx Anesthesia: Yes Hx Anesthesia Reactions: No Meds Allergies/Adverse Reactions: Allergies Allergy/AdvReac Type Severity Reaction Status Date / Time No Known Allergies Allergy Verified 11/19/18 12:12 - Medications Medications: Current Medications Aspirin (Ecotrin) 81 mg PO DAILY [facility] Last Admin: 11/21/18 08:41 Dose: 81 mg Atorvastatin Calcium (Lipitor) 40 mg PO HS [facility] Last Admin: 11/19/18 21:49 Dose: 40 mg Enoxaparin Sodium (Lovenox) 30 mg SC DAILY [facility]; Protocol Last Admin: 11/21/18 08:41 Dose: 30 mg Famotidine (Pepcid) 40 mg PO DAILY [facility] Last Admin: 11/21/18 08:42 Dose: 40 mg Hydralazine HCl (Apresoline) 25 mg PO QID [facility] Last Admin: 11/21/18 13:24 Dose: 25 mg Losartan Potassium (Cozaar) 25 mg PO DAILY [facility] Last Admin: 11/21/18 08:41 Dose: 25 mg Results - Vital Signs Recent Vital Signs: Last Vital Signs Temp 98.4 F 11/21/18 16:00 Pulse 86 11/21/18 16:00 Resp 24 11/21/18 16:00 BP 148/90 11/21/18 16:00 Pulse Ox 95 11/21/18 16:00 - Labs Result Diagrams: 11/21/18 04:06 11/21/18 04:06 Labs: Laboratory Results - last 24 hr 11/21/18 11/21/18 04:06 04:06 WBC 11.0 H RBC 4.38 Hgb 14.0 Hct 40.7 MCV 92.9 D MCH 32.0 H MCHC 34.5 RDW 12.5 Plt Count 266 MPV 8.6 Neut % (Auto) 78.5 H Lymph % (Auto) 9.5 L Giles % (Auto) 9.6 Eos % (Auto) 1.8 Baso % (Auto) 0.6 Neut # (Auto) 8.6 H Lymph # (Auto) 1.0 Giles # (Auto) 1.1 H Eos # (Auto) 0.2 Baso # (Auto) 0.1 Sodium 138 Potassium 3.6 Chloride 101 Carbon Dioxide 30 Anion Gap 11 BUN 17 Creatinine 1.0 Est GFR ( Amer) > 60 Est GFR (Non-Af Amer) 53 Random Glucose 121 H Calcium 10.4 H
--- NOTE | 2018-11-21 17:21 | US ---
Date of service: 11/21/2018 PROCEDURE: Duplex ultrasound of the carotid and vertebral arteries. HISTORY: cva COMPARISON: None available. TECHNIQUE: Grayscale and duplex Doppler evaluation of the cervical carotid and vertebral arteries were performed. The common carotid, carotid bifurcations and cervical ICA and proximal ECA were evaluated. The vertebral arteries were evaluated for gross patency and direction. FINDINGS: RIGHT CAROTID ARTERIES: Common Carotid Artery: Intimal thickening with variable mild atherosclerotic plaque deposition identified maximal flow velocity of 46.8 cm/s. Carotid Bifurcation: Moderate atherosclerotic plaque appears calcified with the carotid bulb nevertheless adequately patent. Internal Carotid Artery:Limited atherosclerotic plaques identified at the proximal segment. Maximal flow velocity of 56.4 cm/s. External Carotid Artery (proximal branches): Normal. Maximal flow velocity of 42.7 cm/s. ICA/CCA Ratio: 1.5 LEFT CAROTID ARTERIES: Common Carotid Artery: Intimal thickening is identified with variable mild atherosclerotic plaque deposition also present maximal flow velocity of 52.3 cm/s. Carotid Bifurcation: Relatively extensive atherosclerotic heart plaques identified without occlusion of the carotid bulb. Internal Carotid Artery:Widely patent though limited hard plaque is identified proximally. Maximal flow velocity of 68.5 cm/s. External Carotid Artery (proximal branches): Normal. Maximal flow velocity of cm/s. ICA/CCA Ratio: 1.3 VERTEBRAL ARTERIES: Right Vertebral Artery: Patent. Antegrade flow. Left Vertebral Artery: Patent. Antegrade flow. OTHER FINDINGS: No atherosclerotic calcification present IMPRESSION: Relatively extensive plaque seen at the left greater than right carotid bulb regions and is mildly appreciated within the various short segments of the bilateral common carotid arteries without significant stenosis in the bilateral internal carotid arteries. Limited atherosclerotic plaques identified the proximal bilateral ICA.
--- NOTE | 2018-11-21 19:40 | PN ---
DATE: 11/21/2018 SUBJECTIVE: The patient is currently confused, on one-to-one watch. Does not appear to be in any distress. She is comfortable and pleasant. PHYSICAL EXAMINATION: VITAL SIGNS: Blood pressure is 138/103, heart rate 86, temperature 98, respirations 19. HEENT: Normocephalic. CHEST: Clear. HEART: S1 and S2 regular. EXTREMITIES: No edema. LABORATORY DATA: Today's hemoglobin and hematocrit are 14 and 48.7, white count 11, platelet count 266,000. Today's SMA-7 is within normal limits except for glucose of 121. Calcium is slightly elevated at 10.4. ASSESSMENT: 1. Status post symptomatic bradycardia. 2. History of paroxysmal atrial fibrillation. 3. 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 4. Uncontrolled hypertension. 5. Improved renal insufficiency. 6. Mild hypercalcemia. 7. History of massive gastrointestinal bleed related to anticoagulation therapy some four to five years ago. RECOMMENDATIONS: Case was discussed at length with Dr. Newell yesterday. The patient is not a suitable candidate for the WATCHMAN procedure because that entails anticoagulation for some time, which is actually contraindicated in this case. The patient will be maintained on Cozaar 25 mg once a day, aspirin 81 mg once a day, Lipitor 40 mg once a day, subcutaneous Lovenox 30 mg once a day, and the patient will be scheduled for permanent pacemaker placement on Friday. Hernando Taylor MD
[2018-11-21] MEDS ORDERED: Iodixanol 320 MG/ML 100 ML BOTTLE IV ONE (20:01)
[2018-11-21] MEDS ORDERED: Sodium Chloride 0.9% 50 ML IV ONE (20:01)
--- NOTE | 2018-11-22 04:35 | CON ---
DATE: 11/21/2018 NEUROLOGY CONSULTATION HISTORY OF PRESENT ILLNESS: Mrs. Talley is an 83-year-old woman with a past medical history of hypertension, questionable AFib, who was previously on Xarelto that was taken off due to GI bleed several years ago, who presented to the emergency room after she had 2 episodes of "passing out" as per her son and . Apparently, the patient was walking on the street, began to feel faint and almost lost consciousness twice and 50 minutes prior to arrival. This occurred on 11/19/2018. There was no foaming at the mouth. There was no urinary incontinence. There was no headache. There was no shaking. There was no ectasia. There was no dysarthria. There was no weakness of arms or legs. The patient was admitted in [facility] and found to have bradycardia with a heart rate of 35, required multiple pressors and medications to elevate the heart rate and stabilize her from a cardiology point of view. Of note, the patient is visiting from [place]. She has never had any prior episodes. Over the last couple of days, she has been maintained medically and then MRI was done yesterday, which came back positive for several acute strokes, specifically in the right posterior occipitoparietal watershed zone, acute cortical infarct and smaller area of diffuse in the left posterosuperior basal ganglia and lorenzo radiata junction, both of these were subacute to chronic. There were also multiple chronic white matter changes as well as postoperative changes of the partial right sided ethmoidectomy and antrostomy. REVIEW OF SYSTEMS: No headache, no insomnia, no nausea, no vomiting, no diarrhea. PAST MEDICAL HISTORY: As above, mild dementia and hypertension. AFib, was on Xarelto in the past and because of GI bleed it was taken off. Chronic sinusitis and poor hearing. Of note, last year, the patient was admitted in [place], [place] for similar changes and was told that she had tachycardia. PAST SURGICAL HISTORY: Hysterectomy, bilateral TKR and hernia repair. SOCIAL HISTORY: Former smoker. Drinks alcohol every day, drinks and also exercises on a daily basis. PHYSICAL EXAMINATION: GENERAL: On exam, the patient is awake, alert, and oriented x3. HEENT: Pupils are equal, round, and reactive to light. EOMI. NEUROLOGIC: No facial droop. The patient is able to draw clock; however, she has some mild paraphasic errors in a sense that she says that a bunch of keys is just one mcfarland. Otherwise, there is no dysarthria. There is no aphasia. She can name and repeat. Follows three-step commands. Motor 5/5 in upper and lower limbs bilaterally. Sensory is intact to fine touch, pin, and position. Gait was not tested today at the patient's request. Reflexes are +1 in upper and lower limbs bilaterally. LABORATORY DATA: Showed white count of 11 today, hemoglobin 14, hematocrit 40.7, and 70.8. Coags are normal. Chemistry showed sodium 138, BUN 26, creatinine 1.3, and random glucose 121. AST 100 and ALT 121. Triglycerides are extremely at 204 and triglycerides of 171. MEDICATIONS: Of note, the patient is on statins, hydralazine, losartan, and aspirin currently. IMPRESSION: An 83-year-old woman with tiny watershed infarcts, may be secondary to hypotension phenomenon. PLAN: 1. Stroke workup. NIH stroke scale is currently 2. 2. She is already on telemetry. 3. Neuro checks every 2 hours. 4. Keep blood pressure elevated to approximately 150-180/90. 5. Aspirin 325 mg p.o. daily. At this point, we can not restart Eliquis due to prior history of GI bleed or Xarelto. 6. CTA of the head and neck. 7. PT/ST/OT. 8. Echo. 9. Carotid Doppler is already done, report pending. Cardiology is already on board. Thank you for this consult. Betty Cook MD
[2018-11-22 05:26] LABS: ALB/GLOB RATIO 1.2 (1.0-2.1); ALBUMIN 3.8 g/dL (3.5-5.0)
[2018-11-22 05:34] LABS: HEMOGLOBIN 13.9 g/dL (12.0-16.0); MEAN CELL VOLUME 93.2 fl (81.0-99.0); MEAN CORPUSCULAR HEMOGLOBIN 31.6 pg (27.0-31.0); MEAN CORPUSCULAR HGB CONC 33.9 g/dL (33.0-37.0); RBC 4.38 Mil/uL (3.80-5.20); RED CELL DISTRIBUTION WIDTH 12.8 % (11.5-14.5); WHITE BLOOD COUNT 12.3 K/uL (4.8-10.8)
[2018-11-22] MEDS: Enoxaparin 30 mg Syringe SC SCH (08:27)
--- NOTE | 2018-11-22 09:32 | CP.CCUPN ---
CCU Subjective - Physician Review Events Since Last Encounter (Free Text): 11/22/18 09:30 alert and awake, no sob, no palpitation, has been in NSR , BP is a bit high. CCU Objective - Vital Signs / Intake & Output Vital Signs (Last 4 hours): Vital Signs Temp Pulse Resp BP Pulse Ox 11/22/18 08:28 85 163/104 H 11/22/18 08:26 85 163/104 H 11/22/18 08:00 97.3 F L 84 17 163/104 H 100 Intake and Output (Last 8hrs): Intake & Output 11/21/18 11/22/18 11/22/18 22:59 06:59 14:59 Intake Total 700 50 0 Output Total 1 Balance 699 50 0 Intake: IV 100 50 0 Intake, Piggyback 0 Oral 600 Output: Urine 1 Urine, Voided 1 Other: # Voids Urine, Voided 2 # Bowel Movements 1 - Physical Exam Narrative Physical Exam (Free Text): 11/22/18 09:31 P/E Neck : no jvd Lungs: No ronchi, crackles Abdomen: soft, no tenderness ext: no waqas heart: s1S2 regular Pupils: Positive for: PERRL Extroacular Muscles: Positive for: EOMI Conjunctiva: Positive for: Normal Mouth: Positive for: Moist Mucous Membranes Respiratory/Chest: Positive for: Clear to Auscultation. Negative for: Good Air Exchange, Respiratory Distress, Accessory Muscle Use, Wheezes, Rales Cardiovascular: Positive for: Regular Rate and Rhythm, Normal S1, S2. Negative for: Murmurs Abdomen: Positive for: Normal Bowel Sounds. Negative for: Tenderness Lower Extremity: Positive for: Normal Inspection Skin: Positive for: Warm Psychiatric: Positive for: Alert, Oriented x 3 - Medications Active Medications: Active Medications Generic Name Dose Route Start Last Admin Trade Name Freq PRN Reason Stop Dose Admin Aspirin 81 mg 11/20/18 09:00 11/22/18 08:27 Ecotrin PO 81 mg DAILY [facility] Administration Atorvastatin Calcium 40 mg 11/19/18 22:00 11/19/18 21:49 Lipitor PO 40 mg HS [facility] Administration Enoxaparin Sodium 30 mg 11/20/18 09:00 11/22/18 08:27 Lovenox SC 30 mg DAILY [facility] Administration Protocol Famotidine 40 mg 11/19/18 16:30 11/22/18 08:27 Pepcid PO 40 mg DAILY [facility] Administration Hydralazine HCl 25 mg 11/21/18 09:00 11/22/18 08:26 Apresoline PO 25 mg QID [facility] Administration Losartan Potassium 25 mg 11/20/18 09:00 11/22/18 08:28 Cozaar PO 25 mg DAILY [facility] Administration - Patient Studies Lab Studies: Microbiology Studies 11/19/18 11:41 MRSA Culture (Admit) - Final Naris MRSA NOT DETECTED Lab Studies 11/22/18 11/22/18 Range/Units 04:17 04:17 WBC 12.3 H (4.8-10.8) K/uL RBC 4.38 (3.80-5.20) Mil/uL Hgb 13.9 (12.0-16.0) g/dL Hct 40.9 (34.0-47.0) % MCV 93.2 (81.0-99.0) fl MCH 31.6 H (27.0-31.0) pg MCHC 33.9 (33.0-37.0) g/dL RDW 12.8 (11.5-14.5) % Plt Count 245 (130-400) K/uL Sodium 137 (132-148) mmol/l Potassium 3.7 (3.6-5.0) MMOL/L Chloride 100 (98-107) mmol/L Carbon Dioxide 29 (22-30) mmol/L Anion Gap 12 (10-20) BUN 27 H (7-17) mg/dl Creatinine 1.1 (0.7-1.2) mg/dl Est GFR ( Amer) 57 Est GFR (Non-Af Amer) 47 Random Glucose 128 H (65-105) mg/dL Calcium 10.0 (8.4-10.2) mg/dL Total Bilirubin 1.1 (0.2-1.3) mg/dl AST 33 (14-36) U/L ALT 65 H D (9-52) U/L Alkaline Phosphatase 106 (38-126) U/L Total Protein 6.9 (6.3-8.2) G/DL Albumin 3.8 (3.5-5.0) g/dL Globulin 3.1 (2.2-3.9) gm/dL Albumin/Globulin Ratio 1.2 (1.0-2.1) Laboratory Results - last 24 hr 11/22/18 11/22/18 04:17 04:17 WBC 12.3 H RBC 4.38 Hgb 13.9 Hct 40.9 MCV 93.2 MCH 31.6 H MCHC 33.9 RDW 12.8 Plt Count 245 Sodium 137 Potassium 3.7 Chloride 100 Carbon Dioxide 29 Anion Gap 12 BUN 27 H Creatinine 1.1 Est GFR ( Amer) 57 Est GFR (Non-Af Amer) 47 Random Glucose 128 H Calcium 10.0 Total Bilirubin 1.1 AST 33 ALT 65 H D Alkaline Phosphatase 106 Total Protein 6.9 Albumin 3.8 Globulin 3.1 Albumin/Globulin Ratio 1.2 Radiology Impressions: Radiology Impressions Carotid Artery Ultrasound 11/20/18 17:23 IMPRESSION: Relatively extensive plaque seen at the left greater than right carotid bulb regions and is mildly appreciated within the various short segments of the bilateral common carotid arteries without significant stenosis in the bilateral internal carotid arteries. Limited atherosclerotic plaques identified the proximal bilateral ICA. Fingerstick Blood Sugar Results: 176 Critical Care Progress Note - Nutrition Nutrition: Nutrition Category Date Time Status Heart Healthy Diet [DIET] Diets 11/20/18 Breakfast Active Assessment/Plan - Assessment and Plan (Free Text) Assessment: ASSESSMENT AND Plan: Bradycardia, Improved, off BB and Cardizem - - was due to meds (Metroprolol, Coreg, Cardizem) - EKG on admission: HR 45, Atrial Fibrillation, +Junctional rhythms, no ischemic changes Now HR 80/m HTN: BP is high - Echo: LVEF 60-65% mild concentric LVH, mild MR and TR - TSH wnl - troponin negative x3 - Antihypertensive Meds held for now - Continuous Cardiac Monitoring - transcutaneous pacer pads on standby - C/W ASA and Statin - Cardiac Electrophysicist Dr. Newell on board - Cage Loader, Dr. Mcclelland on board YUNI vs CKD, baseline unknown - improving - GFR 39, - IV fluids DC IVF started amlodipine for BP PPx - DVT: Lovenox
--- NOTE | 2018-11-22 09:47 | PN ---
DATE: 11/22/2018 SUBJECTIVE: The patient seen and examined. Interim events noted. Consults noted and appreciated. Cardiology followup and intervention noted and appreciated. The patient is in the intensive care unit. Required one-to-one observation again last night. Sleeping, arousable, feels okay. Denies any chest pain, shortness of breath, palpitations, or dizziness. PHYSICAL EXAMINATION: GENERAL: The patient is in no acute distress. VITAL SIGNS: Stable. HEART: S1, S2 normal and regular. LUNGS: Good bilateral air exchange. ABDOMEN: Soft, nontender. EXTREMITIES: No edema. No calf swelling. No tenderness. No acute ischemia. CENTRAL NERVOUS SYSTEM: Essentially unchanged. DIAGNOSTIC DATA: Available diagnostic data reviewed. Telemetry monitoring does not show any significant arrhythmia. The patient's heart rate is in 70s and 80s. ASSESSMENT AND PLAN: Overall, the patient is clinically stable. Tentatively scheduled for pacemaker on Friday. Plan as ordered. Zbigniew Desai MD
--- NOTE | 2018-11-22 11:31 | CT ---
Date of service: 11/21/2018 PROCEDURE: CT Angiography of the Head and Neck. HISTORY: stroke COMPARISON: None available. TECHNIQUE: CT angiography of the head and neck was performed following intravenous contrast administration. Coronal and sagittal maximum intensity projection reformatted images were generated. Contrast Dose: Visipaque 320, 95 cc Radiation dose: Total exam DLP = 487.84 mGy-cm. This CT exam was performed using one or more of the following dose reduction techniques: Automated exposure control, adjustment of the mA and/or kV according to patient size, and/or use of iterative reconstruction technique. FINDINGS: INTERNAL CEREBRAL ARTERIES: Note is made of partially calcified atherosclerosis of the bilateral cavernous internal carotid artery segments without significant stenosis. The skull base, petrous, and supraclinoid segments are bilaterally widely patent. ANTERIOR CEREBRAL ARTERIES: The right A1 JOJO is hypoplastic but appears patent. The left A1 and bilateral A2 segments are widely patent, normal in caliber throughout. Smaller distal branches unremarkable, as visualized. MIDDLE CEREBRAL ARTERIES: Asymmetry in enhancement of proximal M2 branches of right MCA are felt to be secondary to moderate to severe stenoses occurring in transition from M1 to M2 right MCA distribution. Diminished enhancement seen in several perisylvian right MCA branches as well, when compared to the left which is unremarkable. Bilateral M1 and left M2 segments are widely patent. There is good enhancement appreciated throughout the left Perisylvian branches. POSTERIOR CIRCULATION: Basilar Artery: Unremarkable. Distal Vertebral Arteries: Right dominant vertebrobasilar circulation identified. Posterior Cerebral Arteries: Unremarkable. Posterior Inferior Cerebellar Arteries: Unremarkable. NECK CTA: Aortic Arch: Normal three vessel arch identified. Common Carotid arteries: The bilateral common carotid appear widely patent from their origins to their bifurcations with no significant stenosis appreciated. No evidence to suggest common carotid artery dissection. Limited partially calcified atherosclerosis is identified at the distal bilateral common carotid arteries. Internal Carotid arteries: No significant stenosis is appreciated throughout the cervical internal carotid artery segments bilaterally and there is no evidence of dissection either. Trace partially calcified atherosclerotic plaques identified at the proximal cervical internal carotid arteries. External Carotid arteries: Appear unremarkable bilaterally. Vertebral arteries: The bilateral vertebral arteries appear normal in caliber from their origins to their distal cervical segments. No significant stenosis or definite pattern of dissection. ANEURYSM/ VASCULAR MALFORMATIONS: None. OTHER FINDINGS: Incidental centrilobular COPD changes are identified in the visualized bilateral pulmonary apices with right than left apical pulmonary fibrotic changes noted. Two tiny lucencies are too small to characterize at the left lobe thyroid gland incidentally as well. Further, advanced multilevel cervical spondylosis appreciate as well as facet arthropathy with grade 1 spondylolisthesis at C3-4 with C3 anterior to C4 on a degenerative basis apparently. IMPRESSION: 1. 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 Time frame this finding is unclear as preliminary brain MRI performed 04/22/2019 does not demonstrate brain infarction typically related to this distribution. Unremarkable left MCA enhancement. 2. Hypoplastic right A1 JOJO branch with left A1 JOJO and bilateral A2 as well as pericallosal JOJO branches widely patent. 3. No suspicious findings in posterior circulation. 4. No significant stenosis within bilateral common or internal carotid artery segments in the neck. Atherosclerotic changes are mild at the bilateral common and proximal internal carotid arteries. Concordant preliminary report from [facility], 11/20/2018, 9:04 p.m..
--- NOTE | 2018-11-22 22:10 | PN ---
DATE: 11/22/2018 SUBJECTIVE: The patient is oriented. She denies any dizziness, chest pain or shortness of breath. No reported atrial fibrillation. PHYSICAL EXAMINATION: VITAL SIGNS: Blood pressure 124/85, heart rate 82, temperature 98.2, and respirations 17. HEENT: Normocephalic. CHEST: Clear. HEART: S1, S2. Regular. ABDOMEN: Soft. EXTREMITIES: No edema. LABORATORY DATA: Today's hemoglobin and hematocrit are 13.9 and 40.9, white count 12.3, and platelet count 245,000. Today's SMA-7 is within normal limits except for glucose of 128 and BUN of 27. Head and neck CT angiogram, [id number] stenosis of several proximal right mid cerebral artery branches. Unremarkable left mid cerebral artery enhancement. No suspicious findings in posterior circulation. No significant stenosis within the bilateral common or internal carotid artery segments in the neck. ASSESSMENT: 1. Status post symptomatic bradycardia and recurrent near-syncope. 2. Paroxysmal atrial fibrillation. 3. Small acute cortical infarct to the right posterior occipital parietal watershed zone and subacute to chronic small infarct of the left posterosuperior basal nuclei/lorenzo radiata junction. 4. [id number] stenosis of several proximal right mid cerebral artery branches. 5. Hyperlipidemia. 6. History of severe gastrointestinal bleeding related to oral anticoagulation agents used some five years ago. RECOMMENDATIONS: Continue hydralazine 25 mg q.i.d, Cozaar 25 mg once a day, aspirin 81 mg once a day, Lipitor 40 mg once a day, subcutaneous Lovenox 30 mg once a day, Norvasc 5 mg once a day, Pepcid 40 mg orally once a day. The case will be discussed with Dr. Newell and the family are requesting to leave and have further electrophysiology evaluation in their hometown in [place]. Hernando Taylor MD
[2018-11-23 06:08] LABS: ALB/GLOB RATIO 1.3 (1.0-2.1); ALBUMIN 3.9 g/dL (3.5-5.0); ALT/SGPT 50 U/L (9-52); AST/SGOT 28 U/L (14-36); BLOOD UREA NITROGEN 25 mg/dl (7-17); CALCIUM 10.3 mg/dL (8.4-10.2); GFR NON-AFRICAN AMERICAN 53
[2018-11-23 06:28] LABS: HEMOGLOBIN 13.5 g/dL (12.0-16.0); MEAN CELL VOLUME 93.2 fl (81.0-99.0); MEAN CORPUSCULAR HEMOGLOBIN 32.1 pg (27.0-31.0); MEAN CORPUSCULAR HGB CONC 34.5 g/dL (33.0-37.0); RBC 4.2 Mil/uL (3.80-5.20); RED CELL DISTRIBUTION WIDTH 12.7 % (11.5-14.5); WHITE BLOOD COUNT 11.6 K/uL (4.8-10.8)
[2018-11-23] MEDS: Enoxaparin 30 mg Syringe SC SCH (08:53)
--- NOTE | 2018-11-23 14:19 | PN ---
DATE: 11/23/2018 SUBJECTIVE: The patient seen and examined. Interim events noted. Consults noted and appreciated. Neurology and Cardiology followup and intervention noted and appreciated. The patient remains in intensive care unit, awake, responsive, requires one-to-one observation. The patient's and son are at bedside. The patient feels okay. Denies any specific complaint. No chest pain or shortness of breath. PHYSICAL EXAMINATION: GENERAL: The patient is in no acute distress. VITAL SIGNS: Stable. HEART: S1 and S2, normal, regular. LUNGS: Good bilateral air exchange. ABDOMEN: Soft, nontender. EXTREMITIES: No edema, no calf swelling, no tenderness, no acute ischemia. CENTRAL NERVOUS SYSTEM: Essentially unchanged. DIAGNOSTIC DATA: Available diagnostic data reviewed. Telemetry monitoring does not show significant arrhythmia. ASSESSMENT AND PLAN: Overall, the patient is medically stable. The patient and the patient's family were explained above procedure and they agreed to get it done here tomorrow. Plan as ordered. Zbigniew Desai MD
--- NOTE | 2018-11-23 18:04 | PN ---
DATE: 11/23/2018 SUBJECTIVE: The patient is on one-to-one watch. She gets very forgetful. Family has went out for lunch. The has requested yesterday if the patient can have her pacemaker or possible ablation if she needed at [place]. The patient was cleared by me and Dr. Plascencia from the cardiac point of view. However according to the nursing team, the family has change of mind and they want to have things done before they leave, and I will discuss that with the upon his arrival back from his lunch. PHYSICAL EXAMINATION: VITAL SIGNS: Blood pressure 153/82, heart rate 78, temperature 98.6, and respirations 24. HEENT: Normocephalic. CHEST: Clear. HEART: S1, S2. Regular. ABDOMEN: Soft. EXTREMITIES: No edema. LABORATORY DATA: Today's hemoglobin and hematocrit are 15.9 and 39.1, white count 11.6, and platelet count 259,000. Today's SMA-7 is within normal limits except for glucose of 117 and BUN of 25. Today's potassium level is elevated at 10.3. Today's liver enzymes are back to normal levels. ASSESSMENT: 1. Status post symptomatic bradycardia. 2. Paroxysmal atrial fibrillation. 3. 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 4. 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 5. Hyperlipidemia. 6. History of massive gastrointestinal bleeding related to oral anticoagulation in the past. RECOMMENDATIONS: Continue hydralazine 25 mg four time a day, Cozaar 25 mg once a day, aspirin 81 mg once a day, and Norvasc 5 mg once a day. The issue of pacemaker placement will be discussed with the family upon their arrival back to the ICU. The case was discussed with the neurologist yesterday, Dr. Cook; and from the cardiac point of view, the patient can go back to [place] where she initially wanted and the cardiac workup to be completed there. Hernando Taylor MD
--- NOTE | 2018-11-23 23:22 | PN ---
DATE: 11/23/2018 CRITICAL CARE PROGRESS NOTE LOCATION: The patient in ICU, bed 425. TIME SPENT: 35 minutes. The patient is seen, evaluated at the bedside. Past medical, surgical, family and social history are reviewed. SUBJECTIVE: An 83-year-old female with history significant for hypertension, paroxysmal atrial fibrillation, sick sinus syndrome, on Xarelto in the past complicated with GI bleeding. Subsequently, stopped anticoagulation, admitted through emergency room status post near syncopal episodes x2 without trauma, noted to be in sinus bradycardia with rate varying 30 to 40, off metoprolol and Coreg, heart rate improved and remains in the 70s. Seen by Cardiology consult and EP moving consultant, who recommended pacemaker insertion given the sick sinus syndrome and paroxysmal atrial fibrillation. PHYSICAL EXAMINATION: GENERAL: Overnight, alert, awake, slow to respond. Intermittent confusion due to underlying dementia. VITAL SIGNS: Temperature 97.9, heart rate 83 and regular, blood pressure 150/98, respiratory rate 21 to 26 thoracoabdominal, saturating 97%. Intake 1300, output of 1350, negative balance , weight 155 pounds. HEAD, EYES, EARS, NOSE AND THROAT: Pupils are reactive. Conjunctivae pink. Sclerae white. NECK: Supple. Trachea is central. CHEST: Bilateral breath sounds, clear to auscultation. HEART: Rhythm regular. S1, S2. Normal intensity. No S3, S4, or gallop. No audible murmur. ABDOMEN: Bowel sounds are present. Soft. Liver and spleen are not palpable. Bladder not distended. EXTREMITIES: No clubbing, cyanosis, trace edema. NEUROLOGIC: Alert, oriented to name, place, and time. Marco coma scale 15. No motor or sensory impairment. CURRENT MEDICATIONS: Losartan 25 mg p.o. daily, hydralazine 25 mg 4 times daily, Pepcid 40 mg p.o. daily, Lipitor 40 mg p.o. daily, Ecotrin 81 mg daily, and Norvasc 5 mg daily. LABORATORY DATA: WBC 11.6, hemoglobin 13.5, hematocrit 39.1, and platelet count 259. PT 11.5, INR 1, PTT 28.6. VBG lactate 2.2. SMA-7; sodium 136, potassium 4, chloride 102, CO2 of 25, blood urea nitrogen 25, creatinine 1, random glucose 117, calcium 10.3, total bilirubin 1.2. AST 28, ALT 50, alkaline phosphatase 91, troponin less than 0.0120, triglycerides 171, cholesterol 204, and LDL 129. Microbiology, nasal smear MRSA negative. CTA head and neck done on 11/21/2018, [id number]-[id number] stenosis at several proximal white M2 MCA branches are identified leading to asymmetry and enhancement at M3 and perisylvian, MCA branches when compared to the left. The time frame of this finding is unclear. Brain MRI performed on 04/22/2018 does not demonstrate brain infarction, typically related to this distribution. Hypoplastic right A1 JOJO branch with left A1 JOJO and bilateral A2 as well as pericallosal JOJO. Suspicious findings in the posterior circulation and significant stenosis within the bilateral common carotid, internal carotid artery segments in the neck. MRI done on 11/19/2018, tiny acute cortical infarct in the right posterior occipitoparietal watershed zone, smaller faint area of restricted effusion in the left posterosuperior basal ganglion and lorenzo radiata junction, which is felt to represent small subacute chronic infarct, brain parenchyma [id number] diffuse and confluent chronic periventricular white matter ischemic changes seen extending peripherally into the deep and subcortical white matter, both cerebral hemispheres, postoperative changes of the partial right sided ethmoidectomy and medial wall antrostomy. IMPRESSION: 1. Neurologic: History of dementia, status post multiple subacute chronic infarcts; history of paroxysmal atrial fibrillation; failed anticoagulation due to gastrointestinal bleeding, now on Ecotrin 81 mg daily. Closely monitor for further neuro events. 2. Cardiac: History of paroxysmal atrial fibrillation, not on anticoagulation except aspirin due to previous history of gastrointestinal bleeding. 3. Pulmonary: No acute issues noted. 4. Gastrointestinal: No acute abnormalities, enzyme elevation trending down. 5. Renal: No acute issues, borderline leukocytosis, normal hemoglobin and hematocrit, normal platelet count. No acute renal issues. Axel Kohli MD
[2018-11-24 05:12] LABS: ALB/GLOB RATIO 1.2 (1.0-2.1); ALBUMIN 3.7 g/dL (3.5-5.0); CALCIUM 10.1 mg/dL (8.4-10.2)
[2018-11-24 05:29] LABS: HEMOGLOBIN 13.1 g/dL (12.0-16.0); MEAN CELL VOLUME 93.5 fl (81.0-99.0); MEAN CORPUSCULAR HEMOGLOBIN 31.8 pg (27.0-31.0); RBC 4.13 Mil/uL (3.80-5.20); RED CELL DISTRIBUTION WIDTH 12.6 % (11.5-14.5); WHITE BLOOD COUNT 11.2 K/uL (4.8-10.8)
--- NOTE | 2018-11-24 07:57 | CP.PCM.PN ---
<Hugo Britt - Last Filed: 11/24/18 09:23> Subjective - Date & Time of Evaluation Date of Evaluation: 11/24/18 Time of Evaluation: 07:57 - Subjective Subjective: Patient seen and examined this morning with Dr Desai, family at bedside Patient still in 1 to 1, reports feeling better, no CP or sob reported Patient scheduled this am for pacemaker placement Objective - Vital Signs/Intake and Output Vital Signs (last 24 hours): Temp Pulse Resp BP Pulse Ox 98 F 81 18 149/80 98 11/24/18 04:00 11/24/18 05:59 11/24/18 05:59 11/24/18 05:59 11/24/18 05:59 Intake and Output: 11/24/18 11/24/18 06:59 18:59 Intake Total 0 Output Total 750 Balance -750 - Medications Medications: Current Medications Acetaminophen (Tylenol 325mg Tab) 650 mg PO Q6 PRN PRN Reason: Other Last Admin: 11/23/18 21:51 Dose: 650 mg Amlodipine Besylate (Norvasc) 5 mg PO DAILY [facility] Last Admin: 11/23/18 08:53 Dose: 5 mg Aspirin (Ecotrin) 81 mg PO DAILY [facility] Last Admin: 11/23/18 08:53 Dose: 81 mg Atorvastatin Calcium (Lipitor) 40 mg PO HS [facility] Last Admin: 11/19/18 21:49 Dose: 40 mg Famotidine (Pepcid) 40 mg PO DAILY [facility] Last Admin: 11/23/18 08:54 Dose: 40 mg Hydralazine HCl (Apresoline) 25 mg PO QID [facility] Last Admin: 11/23/18 21:51 Dose: 25 mg Losartan Potassium (Cozaar) 25 mg PO DAILY [facility] Last Admin: 11/23/18 08:52 Dose: 25 mg - Labs Labs: 11/24/18 04:15 11/24/18 04:15 PT 11.3 Seconds (9.8-13.1) 11/19/18 12:18 INR 1.0 11/19/18 12:18 APTT 28.6 Seconds (25.6-37.1) 11/19/18 12:18 - Constitutional Appears: Non-toxic, No Acute Distress - Head Exam Head Exam: NORMAL INSPECTION - Eye Exam Eye Exam: EOMI, Normal appearance, PERRL - ENT Exam ENT Exam: Mucous Membranes Moist - Neck Exam Neck Exam: Full ROM. absent: Tenderness, Thyromegaly - Respiratory Exam Respiratory Exam: Clear to Ausculation Bilateral, NORMAL BREATHING PATTERN. absent: Chest Wall Tenderness - Cardiovascular Exam Cardiovascular Exam: REGULAR RHYTHM, +S1, +S2. absent: Tachycardia - GI/Abdominal Exam GI & Abdominal Exam: Soft, Normal Bowel Sounds. absent: Distended, Tenderness - Extremities Exam Extremities Exam: absent: Calf Tenderness, Pedal Edema - Neurological Exam Neurological Exam: Alert, Awake, CN II-XII Intact - Skin Skin Exam: Dry, Warm Assessment and Plan - Assessment and Plan (Free Text) Assessment: 83 y/o female with hx of Dementia, HTN, HLD, Atrial Fibrillation, Chronic Sinusitis admitted with symptomatic bradycardia. Plan: Bradycardia, improved - Likely 2/2 to polypharmacy (Metroprolol, Coreg, Cardizem) - Echo: LVEF 60-65% mild concentric LVH, mild MR and TR - BP on the high side, (permissive HTN per Neurology recs) - Continuous Cardiac Monitoring - C/W ASA - Carrot Buncher, Dr. Mcclelland on board - scheduled for OR today for pacemaker placement. - continue rest of plan as ordered YUNI vs CKD, baseline unknown - improving - GFR 39 - IV fluids PPx - DVT: scd for now Discussed case with Dr. Desai <Zbigniew Desai - Last Filed: 11/25/18 16:48> Objective - Vital Signs/Intake and Output Vital Signs (last 24 hours): Temp Pulse Resp BP Pulse Ox 97.5 F L 72 13 119/55 L 98 11/25/18 12:00 11/25/18 11:27 11/25/18 08:00 11/25/18 10:00 11/25/18 11:27 Intake and Output: 11/25/18 11/25/18 11:59 23:59 Intake Total 1700 Balance 1700 - Labs Labs: 11/25/18 04:41 11/25/18 04:41 PT 12.6 Seconds (9.8-13.1) 11/24/18 07:30 INR 1.1 11/24/18 07:30 APTT 28.6 Seconds (25.6-37.1) 11/19/18 12:18 Assessment and Plan - Assessment and Plan (Free Text) Assessment: Patient was personally seen and examined by me in rounds with residents. Available labs and diagnostic data reviewed. Case, Patient's condition and management plan discussed with residents in rounds. Agree with resident's progress note. Plan: As ordered.
[2018-11-24 08:07] LABS: INR 1.1; PROTHROMBIN TIME 12.6 Seconds (9.8-13.1)
--- NOTE | 2018-11-24 08:26 | PN ---
DATE: 11/21/2018 SUBJECTIVE: The patient seen and examined. Interim events noted. Consults noted and appreciated. Slitter Scorer, civil structural designer, lithoplate maker and neurologist intervention noted and appreciated. The patient remains in intensive care unit, requiring observation for periods of confusion. Denies any chest pain or shortness of breath, palpitation or dizziness. PHYSICAL EXAMINATION: GENERAL: The patient is in no acute distress. VITAL SIGNS: Stable. HEART: S1 and S2, normal and regular. LUNGS: Good bilateral air exchange. ABDOMEN: Soft, nontender. EXTREMITIES: No edema, no calf swelling, no tenderness, no acute ischemia. CENTRAL NERVOUS SYSTEM: Exam is essentially unchanged. There is no sign of any acute gross focal motor or sensory neurological deficit of new origin. DIAGNOSTIC DATA: Available diagnostic data reviewed. Telemetry monitoring does not show significant arrhythmias. MRI shows acute phase ischemia. Overall, the patient is clinically stable, possibility of pacemaker and Watchman device discussed with the patient at length. The patient will discuss with family and let us know about their decision. Overall, the patient is medically stable. Plan as ordered. Zbigniew Desai MD
--- NOTE | 2018-11-24 10:30 | CP.CCUPN ---
<Dwain Tejada - Last Filed: 11/24/18 10:16> CCU Subjective - Physician Review Subjective (Free Text): No acute overnight events. As per RN, pt occasionally will walk out of bed without assistance despite being instructed not to. Also has been occasionally confused. Pt seen and examined this morning. Complains of dry mouth. Otherwise denies any sob, cp, dizziness. Family at bedside, discussed plan for OR today for Pacemaker placement. CCU Objective - Vital Signs / Intake & Output Vital Signs (Last 4 hours): Vital Signs Pulse Resp BP Pulse Ox 11/24/18 05:59 81 18 149/80 98 Intake and Output (Last 8hrs): Intake & Output 11/23/18 11/24/18 11/24/18 22:59 06:59 14:59 Intake Total 0 0 Output Total 750 Balance 0 -750 Weight 159 lb 4.8 oz Intake: IV 0 0 Output: Urine 750 Urine, Voided 750 Other: # Voids Urine, Voided 3 - Physical Exam Pupils: Positive for: PERRL Extroacular Muscles: Positive for: EOMI Conjunctiva: Positive for: Normal Mouth: Positive for: Moist Mucous Membranes Respiratory/Chest: Positive for: Clear to Auscultation. Negative for: Good Air Exchange, Respiratory Distress, Accessory Muscle Use, Wheezes, Rales Cardiovascular: Positive for: Regular Rate and Rhythm, Normal S1, S2. Negative for: Murmurs Abdomen: Positive for: Normal Bowel Sounds. Negative for: Tenderness Lower Extremity: Positive for: Normal Inspection Skin: Positive for: Warm Psychiatric: Positive for: Alert, Oriented x 3 - Medications Active Medications: Active Medications Generic Name Dose Route Start Last Admin Trade Name Nikhil PRN Reason Stop Dose Admin Acetaminophen 650 mg 11/23/18 20:14 11/23/18 21:51 Tylenol 325mg Tab PO 650 mg Q6 PRN Administration Other Amlodipine Besylate 5 mg 11/22/18 09:45 11/23/18 08:53 Norvasc PO 5 mg DAILY [facility] Administration Aspirin 81 mg 11/20/18 09:00 11/23/18 08:53 Ecotrin PO 81 mg DAILY [facility] Administration Atorvastatin Calcium 40 mg 11/19/18 22:00 11/19/18 21:49 Lipitor PO 40 mg HS [facility] Administration Famotidine 40 mg 11/19/18 16:30 11/23/18 08:54 Pepcid PO 40 mg DAILY [facility] Administration Hydralazine HCl 25 mg 11/21/18 09:00 11/23/18 21:51 Apresoline PO 25 mg QID [facility] Administration Losartan Potassium 25 mg 11/20/18 09:00 11/23/18 08:52 Cozaar PO 25 mg DAILY [facility] Administration - Patient Studies Lab Studies: Lab Studies 11/24/18 11/24/18 Range/Units 04:15 04:15 WBC 11.2 H (4.8-10.8) K/uL RBC 4.13 (3.80-5.20) Mil/uL Hgb 13.1 (12.0-16.0) g/dL Hct 38.6 (34.0-47.0) % MCV 93.5 (81.0-99.0) fl MCH 31.8 H (27.0-31.0) pg MCHC 34.0 (33.0-37.0) g/dL RDW 12.6 (11.5-14.5) % Plt Count 263 (130-400) K/uL Sodium 138 (132-148) mmol/l Potassium 4.0 (3.6-5.0) MMOL/L Chloride 102 (98-107) mmol/L Carbon Dioxide 26 (22-30) mmol/L Anion Gap 14 (10-20) BUN 26 H (7-17) mg/dl Creatinine 1.3 H (0.7-1.2) mg/dl Est GFR ( Amer) 47 Est GFR (Non-Af Amer) 39 Random Glucose 126 H (65-105) mg/dL Calcium 10.1 (8.4-10.2) mg/dL Total Bilirubin 1.2 (0.2-1.3) mg/dl AST 24 (14-36) U/L ALT 48 (9-52) U/L Alkaline Phosphatase 91 (38-126) U/L Total Protein 6.7 (6.3-8.2) G/DL Albumin 3.7 (3.5-5.0) g/dL Globulin 3.0 (2.2-3.9) gm/dL Albumin/Globulin Ratio 1.2 (1.0-2.1) Laboratory Results - last 24 hr 11/24/18 11/24/18 04:15 04:15 WBC 11.2 H RBC 4.13 Hgb 13.1 Hct 38.6 MCV 93.5 MCH 31.8 H MCHC 34.0 RDW 12.6 Plt Count 263 Sodium 138 Potassium 4.0 Chloride 102 Carbon Dioxide 26 Anion Gap 14 BUN 26 H Creatinine 1.3 H Est GFR ( Amer) 47 Est GFR (Non-Af Amer) 39 Random Glucose 126 H Calcium 10.1 Total Bilirubin 1.2 AST 24 ALT 48 Alkaline Phosphatase 91 Total Protein 6.7 Albumin 3.7 Globulin 3.0 Albumin/Globulin Ratio 1.2 Fingerstick Blood Sugar Results: 176 Critical Care Progress Note - Nutrition Nutrition: Nutrition Category Date Time Status Heart Healthy Diet [DIET] Diets 11/20/18 Breakfast Active Assessment/Plan - Assessment and Plan (Free Text) Assessment: Pt is an 83 y/o female with hx of Dementia, HTN, HLD, Atrial Fibrillation, Chronic Sinusitis brought to ED by EMS for pre-syncopal episodes associated with vomiting, noted to be Bradycardic HR in 30's w/ EKG demonstrating +junctional rhythms, received 1 dose of Atropine with slight improvement of HR. Admitted to ICU for close cardiac monitoring. Neuro - Hx of Dementia. C/W Mamantine - Head CT: No acute intracranial hemorrhage, chronic ischemic changes - Brain MRI report significant for : Small acute cortical infarct right posterior occipito patietal watershed zone, subacute to chronic small infarct left posterior basal nuclei/ lorenzo radiata junction. - Head & Neck CTA: Moderate to severe stenosis at several right MCA branches..does not demonstrate brain infarction typically related to this distribution - Carotid US: Extensive plaques L>R at carotid bulbs - Neuro on board - C/W ASA, Statin Cardio - Symptomatic Bradycardia w/ HR in 30's S/P Atropine x1 in ED - EKG on admission: HR 45, Atrial Fibrillation, +Junctional rhythms, no ischemic changes - Has underlying Hx of Afibb, possibly paroxysmal - Bradycardia likely medication induced as pt is currently on multiple AV silvia blocking agents (Metroprolol, Coreg, Cardizem) - AV silvia blocking medication held and HR improved in Sinus Rhythm - BP stable on Norvasc, Hydralazine, and Losartan - Continuous Cardiac Monitoring - Echo report: LVEF 60-65% mild concentric LVH, mild MR and TR - Cardiac Electrophysicist Dr. Newell on board, plan for pacemaker placement today - Radio Disc Jockey, Dr. Mcclelland on board Pulm - Saturating 95-99% on Rm air Renal - YUNI on CKD improving on IV fluids GI - Pepcid for possible Gastritis - NPO for procedure - Transminitis resolved Endocrine - TSH normal and Hga1c 6.0 PPx - DVT: Lovenox held for OR. SCD's for now Discussed case with Dr. Armando Tejada PGY2 <Thomas Roberts M - Last Filed: 11/24/18 10:52> CCU Objective - Vital Signs / Intake & Output Vital Signs (Last 4 hours): Vital Signs Temp Pulse Resp BP Pulse Ox 11/24/18 08:50 88 160/90 H 11/24/18 08:49 88 160/90 H 11/24/18 08:00 98.6 F 81 25 H 160/90 H 98 Intake and Output (Last 8hrs): Intake & Output 11/23/18 11/24/18 11/24/18 22:59 06:59 14:59 Intake Total 0 0 Output Total 750 Balance 0 -750 Weight 159 lb 4.8 oz Intake: IV 0 0 Output: Urine 750 Urine, Voided 750 Other: # Voids Urine, Voided 3 1 - Medications Active Medications: Active Medications Generic Name Dose Route Start Last Admin Trade Name Freq PRN Reason Stop Dose Admin Acetaminophen 650 mg 11/23/18 20:14 11/23/18 21:51 Tylenol 325mg Tab PO 650 mg Q6 PRN Administration Other Amlodipine Besylate 5 mg 11/22/18 09:45 11/24/18 08:50 Norvasc PO 5 mg DAILY [facility] Administration Aspirin 81 mg 11/20/18 09:00 11/24/18 08:50 Ecotrin PO Not Given DAILY [facility] Atorvastatin Calcium 40 mg 11/19/18 22:00 11/19/18 21:49 Lipitor PO 40 mg HS [facility] Administration Famotidine 40 mg 11/19/18 16:30 11/23/18 08:54 Pepcid PO 40 mg DAILY [facility] Administration Hydralazine HCl 25 mg 11/21/18 09:00 11/24/18 08:49 Apresoline PO 25 mg QID [facility] Administration Potassium Chloride/Dextrose/Sod Cl 1,000 mls @ 80 mls/hr 11/24/18 09:00 Potassium Chl 20 Meq In D5-Ns IV 11/25/18 08:22 .[id number] [facility] Losartan Potassium 25 mg 11/20/18 09:00 11/24/18 08:49 Cozaar PO 25 mg DAILY [facility] Administration Memantine 5 mg 11/24/18 10:30 Namenda PO Q12 [facility] - Patient Studies Lab Studies: Lab Studies 11/24/18 11/24/18 11/24/18 Range/Units 07:30 04:15 04:15 WBC 11.2 H (4.8-10.8) K/uL RBC 4.13 (3.80-5.20) Mil/uL Hgb 13.1 (12.0-16.0) g/dL Hct 38.6 (34.0-47.0) % MCV 93.5 (81.0-99.0) fl MCH 31.8 H (27.0-31.0) pg MCHC 34.0 (33.0-37.0) g/dL RDW 12.6 (11.5-14.5) % Plt Count 263 (130-400) K/uL PT 12.6 (9.8-13.1) Seconds INR 1.1 Sodium 138 (132-148) mmol/l Potassium 4.0 (3.6-5.0) MMOL/L Chloride 102 (98-107) mmol/L Carbon Dioxide 26 (22-30) mmol/L Anion Gap 14 (10-20) BUN 26 H (7-17) mg/dl Creatinine 1.3 H (0.7-1.2) mg/dl Est GFR ( Amer) 47 Est GFR (Non-Af Amer) 39 Random Glucose 126 H (65-105) mg/dL Calcium 10.1 (8.4-10.2) mg/dL Total Bilirubin 1.2 (0.2-1.3) mg/dl AST 24 (14-36) U/L ALT 48 (9-52) U/L Alkaline Phosphatase 91 (38-126) U/L Total Protein 6.7 (6.3-8.2) G/DL Albumin 3.7 (3.5-5.0) g/dL Globulin 3.0 (2.2-3.9) gm/dL Albumin/Globulin Ratio 1.2 (1.0-2.1) Laboratory Results - last 24 hr 11/24/18 11/24/18 11/24/18 04:15 04:15 07:30 WBC 11.2 H RBC 4.13 Hgb 13.1 Hct 38.6 MCV 93.5 MCH 31.8 H MCHC 34.0 RDW 12.6 Plt Count 263 PT 12.6 INR 1.1 Sodium 138 Potassium 4.0 Chloride 102 Carbon Dioxide 26 Anion Gap 14 BUN 26 H Creatinine 1.3 H Est GFR ( Amer) 47 Est GFR (Non-Af Amer) 39 Random Glucose 126 H Calcium 10.1 Total Bilirubin 1.2 AST 24 ALT 48 Alkaline Phosphatase 91 Total Protein 6.7 Albumin 3.7 Globulin 3.0 Albumin/Globulin Ratio 1.2 Critical Care Progress Note - Nutrition Nutrition: Nutrition Category Date Time Status NPO Diet [DIET] Diets 11/24/18 Breakfast Active Attending/Attestation - Attestation I have personally seen and examined this patient.: Yes I have fully participated in the care of the patient.: Yes I have reviewed all pertinent clinical information: Yes Notes (Text): 11/24/18 10:51 Today: Saturday, November 24, 2018 The patient was Seen/interviewed and examined by me at the bedside during ICU round, Medical records reviewed and Management issues were discussed and formulated with the house staff. Events reviewed I have reviewed all the relevant clinical, laboratory, hemodynamic, radiographic data and medications Pain issues, skin care, head of the bed elevation, glycemic control were addressed. I concur with resident's assessment and plan of care as transcribed in Dr. Tejada note.
[2018-11-24] MEDS: Potassium Chl 20 mEq in D5-NS 1,000 ML IV SCH ×2 (12:02→23:31)
--- NOTE | 2018-11-24 13:04 | PCM.STROKE ---
Interval History Stroke Date: 11/19/18 - Treatment DVT Prophylaxis: Sequential compression device in place bilaterally Antiplatelet: Acetylsalicylic acid (ASA), Plavix Statin: Atrovastatin - Education Written Stroke Education provided regarding: personal risk factors, stroke warning sign/symptoms, how to activate emergency medical services, need to follow up after discharge Hx Atrial Fibrillation: Yes Hx Atrial Flutter: No Reason for not on anticoagulation: h/o GIB on Xarelto - Therapy Notes I have reviewed care of the patient with: Dr. Camacho NIHSS Stroke Scale - Date/Time Evaluation Performed Date Performed: 11/24/18 Time Performed: 14:15 When Was NIHSS Performed: Re-evaluation - How Severe is the Stroke Level of Consciousness: 0=Alert LOC to Questions: 0=Both comments correct LOC to commands: 0=Obeys both correctly Best Gaze: 0=Normal Visual: 0=No visual loss Facial: 0=Normal Motor Arm - Left: 0=No drift Motor Arm - Right: 0=No drift Motor Leg - Left: 0=No drift Motor Leg - Right: 0=No drift Limb Ataxia: 0=Absent Sensory: 0=Normal Best Language: 0=No aphasia Dysarthia: 0=Normal articulation Extinction & Inattention (Neglect): 0=Normal, no object Score: 0 Exam - Vital Sign Vital Signs: Temp Pulse Resp BP Pulse Ox 98.6 F 84 20 159/85 H 98 11/24/18 11:59 11/24/18 11:59 11/24/18 11:59 11/24/18 11:59 11/24/18 11:59 Constitutional: No distress, Normal appearing Ophthalmoscopic: absent: papilledema, hemorrhage Right Pupil: Reactive Right Pupil Size (in mm): 2 Left Pupil: Reactive Left Pupil Size (in mm): 2 Cardiovascular: Other (afib 80's) Mental Status: Normal: Orientation, Attention, Language, Fund of Knowledge. Abnormal: Memory (forgetful) Cranial Nerve: Normal: Visual Raymond, Extraocular movement intact, Facial Sensation, Facial Strength, Hearing, Palate/Tongue Movement, Shoulder Strength Motor: Tone, Bulk Neuro motor strength exam: Left Upper Extremity: 5, Right Upper Extremity: 5, Left Lower Extremity: 5, Right Lower Extremity: 5 Sensation: Intact to pin, Vibration DTR: Patellar Left: 1+, Patellar Right: 1+ Flexor Plantar Reflex: Normal Coordination: Finger/nose, Heel/Tapia Vascular Risk: Hypertension, Lipids, Atrial Fibrillation, Dietary - Data reviewed Laboratory results: 11/24/18 04:15 11/24/18 04:15 Triglycerides 171 mg/DL (0-149) H 11/20/18 04:25 Cholesterol 204 mg/dL (0-199) H 11/20/18 04:25 LDL Cholesterol Direct 129 mg/dL (0-129) 11/20/18 04:25 HDL Cholesterol 54 MG/DL (30-70) 11/20/18 04:25 Hemoglobin A1c 6.4 % (4.2-6.5) 11/19/18 16:50 Assessment and Plan (1) CVA (cerebral vascular accident) Assessment & Plan: Imaging reviewed: -CTA Head and Neck (11/21/18): 1. 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 Time frame this finding is unclear as preliminary brain MRI performed 04/22/2019 does not demonstrate brain infarction typically related to this distribution. Unremarkable left MCA enhancement. 2. Hypoplastic right A1 JOJO branch with left A1 JOJO and bilateral A2 as well as pericallosal JOJO branches widely patent. 3. No suspicious findings in posterior circulation. 4. No significant stenosis within bilateral common or internal carotid artery segments in the neck. Atherosclerotic changes are mild at the bilateral common and proximal internal c arotid arteries. -Carotid U/S (11/20/18): Relatively extensive plaque seen at the left greater than right carotid bulb regions and is mildly appreciated within the various short segments of the bilateral common carotid arteries without significant stenosis in the bilateral internal carotid arteries. Limited atherosclerotic plaques identified the proximal bilateral ICA. -Brain MRI (11/20/18): There is a small acute in the cortical infarct right posterior occipito parietal watershed zone. There is also a subacute to chronic small infarct left posterior superior basal nuclei/lorenzo radiata junction. Moderate chronic white matter and lesser basal nuclei ischemic changes. Moderate generalized volume loss. -CT head (11/19/18):No acute intracranial hemorrhage. Moderate to fairly significant chronic white matter ischemic changes. There is also some extension of these changes into the white matter tracts of both basal nuclei with scattered more discrete chronic bilateral basal nuclei lacunar type infarcts. Moderate fairly significant central volume loss. There are a few bubbles of air in the regions of both cavernous sinuses. More significant subcutaneous air scattered about the frontal scalp at the level of the forehead both infratemporal fossa and frontotemporal scalp regions left greater than right. Findings could be secondary to a recent intravenous injection contaminated with air. Clinical correlation recommended to exclude the possibility of recent trauma.. -For PPM insertion today. -Continue ASA 81 mg PO Daily; start Plavix 75 mg PO Daily. Please continue these upon d/c. Pt will need a rx. -Continue statin upon d/c. Pt has her own statin from home that she can con tinue taking. -TEDS to be placed prior to d/c. I have discussed at length with the pt her risk factors for secondary stroke ad well as preventing DVT and further strokes since she is flying back to [place] this . -Pt has a follow up appt already scheduled with her manager army in [place] for next week. I have provided her and her with a copy of her labs and imaging/diagnostics to take to her manager [employer]. -Please notify neuro of any acute changes in pt's condition. Leslie Vargas, RICARDO, STERILE PROCESSING TECH d/w Dr. Camacho Status: Acute
--- NOTE | 2018-11-24 14:29 | PN ---
DATE: 11/24/2018 SUBJECTIVE: The patient denies any chest pain. No reported atrial fibrillation, sinus bradycardia or high-grade AV block. PHYSICAL EXAMINATION: VITAL SIGNS: Blood pressure 143/84, heart rate 85, temperature 98.6, respirations 18. HEENT: Normocephalic. CHEST: Clear. HEART: S1 and S2. Regular. EXTREMITIES: No edema. LABORATORY DATA: Today's hemoglobin and hematocrit are 13.1 and 38.6. White count 37.2, platelet count 263,000. Today's BUN and creatinine are 26 and 1.3 respectively. Glucose 126. ASSESSMENT: 1. Status post symptomatic bradycardia. 2. Paroxysmal atrial fibrillation. 3. Recent acute cortical infarct in the right posterior occipitoparietal watershed zone. 4. [id number] stenosis of several branches of the right mid cerebral artery. RECOMMENDATIONS: Continue Cozaar 25 mg once a day, hydralazine 25 mg q.i.d., Pepcid 40 mg orally once a day. Aspirin is on hold for now, and the patient is scheduled for permanent pacemaker placement by Dr. Newell at 3 p.m. The case was discussed in detail with the patient's at the bedside. Hernando Taylor MD
--- NOTE | 2018-11-24 14:34 | PQF ---
PROVIDER RESPONSE TEXT: Acute on Chronic kidney failure REVIEWER QUERY TEXT: Abbreviation Clarification Acute Kidney Injury versus Acute Kidney Ischemia:Your help is requested in clarifying the unclear ab breviation: YUNI Please further specify in the medical record documentation OR: Other explanation of clinical finding BUN:34->26 Creatinine: 1.7->1.3 EST GFR ( Amer): 35->47 IVF: 1,000 ccs hr,-> 500 ccs/hr. 11/20 Lasix 20 mg IVP once EST GFR (Non_African Amer):29->39 H and P includes: KI vs CKD, baseline unknown - improving - GFR 39, - IV fluids The patient's Clinical Indicators include: -- Query created by: Mikala Castillo on 11/20/2018 2:03 PM Electronically signed by: Hugo Britt 11/24/2018 2:30 PM
[2018-11-24] MEDS ORDERED: Lidocaine 1% Inj (20ml) ONE (16:22)
[2018-11-24] MEDS ORDERED: Sodium Chloride 0.9% 1,000 ML IV ONE (17:52)
[2018-11-24] MEDS ORDERED: Midazolam 2 MG/2 ML VIAL ONE (18:05)
[2018-11-24] MEDS ORDERED: Liquid Adhesive TOP ONE (18:22)
[2018-11-24] MEDS ORDERED: Lidocaine 1% Inj (20ml) IJ ONE ×2 (18:22)
[2018-11-24] MEDS ORDERED: Propofol 10 mg/ml Inj (20 ML) ONE (18:24)
[2018-11-25 05:50] LABS: MEAN CELL VOLUME 95.6 fl (81.0-99.0); MEAN CORPUSCULAR HEMOGLOBIN 32.4 pg (27.0-31.0); MEAN CORPUSCULAR HGB CONC 33.9 g/dL (33.0-37.0); RBC 3.42 Mil/uL (3.80-5.20); RED CELL DISTRIBUTION WIDTH 12.6 % (11.5-14.5); WHITE BLOOD COUNT 12.3 K/uL (4.8-10.8)
[2018-11-25 05:54] LABS: BLOOD UREA NITROGEN 25 mg/dl (7-17); CALCIUM 9.3 mg/dL (8.4-10.2); GFR NON-AFRICAN AMERICAN 53
--- NOTE | 2018-11-25 05:55 | OP ---
PROCEDURE DATE: 11/24/2018 INPATIENT OPERATIVE REPORT PROCEDURE: Implantation of a dual chamber permanent pacemaker. PREOPERATIVE DIAGNOSES: Sick sinus syndrome, syncope, atrial fibrillation. REFERRING PHYSICIAN: Hernando Taylor MD INDICATION FOR PROCEDURE: Mrs. Heidi Talley is a very pleasant 83-year-old female with past medical history significant for hypertension, paroxysmal atrial fibrillation, repeated episodes for atrial fibrillation with rapid ventricular response, significant GI bleed, hyperlipidemia who presented initially to [facility] on the day of admission, 11/19/2018 with two near syncopal spells. The patient was found to be severely bradycardic with sinus rates/junctional rates in the 30s. The patient was admitted to the ICU, was withdrawn off of her multiple AV silvia blocking agents, Toprol-XL 100 mg daily, Coreg 6.25 mg b.i.d., and Cardizem 300 mg p.o. daily. The patient's resultant heart rate did increase, but the patient then became tachycardic. The patient clearly demonstrated tachybrady syndrome and also gives history of admissions for atrial fibrillation with rapid ventricular response. Given the patient's advanced age poor candidate for anticoagulation/ablation, the patient was felt that be a reasonable candidate for a permanent pacemaker which would allow for AV silvia blockade. The patient was agreeable. Therefore, the patient was made NPO this morning for the aforementioned procedure. Informed consent was received for the procedure as well as sedation/anesthesia which was performed by Dr. Kapoor. DESCRIPTION OF PROCEDURE: The patient was brought into the room in a postabsorptive state. The left pectoral area was draped and prepped in a sterile fashion. Lidocaine 2% solution was injected into the surgical site. Using a #15 blade, a 3.5-cm incision was made two fingerbreadths below the clavicle using blunt dissection and electrocautery. The fascial planes were dissected. The cephalic vein was identified and cephalic vein cutdown was then performed without difficulty. A 0.035 guidewire was then inserted to achieve and maintain access. A 9-[place]ian SafeSheath was then inserted over this wire under fluoroscopic guidance. The right ventricular lead which is a Medtronic 5076 CapSureFix lead, serial number [id number] was inserted via this sheet, manipulated into the right ventricular apex again without difficulty. Threshold through the program system analyzer and similarly through the device are as follows: Threshold is 1 volt at 0.4 milliseconds at a current of 0.5. R-wave is measured 13, impedance of 1020. R-wave is measured again 20 with a flow rate of 4. Using routine access, an additional 0.035 guidewire was inserted via the 9-Armenian SafeSheath. A 7-Armenian SafeSheath was then inserted again without difficulty. The right atrial lead which is a Medtronic 5076 CapSureFix lead, serial number [id number] was inserted via the sheath again without difficulty. P-waves measured 2.2. Threshold also was within normal limits at 1 at 0.4 milliseconds. Impedance on the lead was 388 which is within normal limits. Both leads were finalized under fluoroscopy and repositioned as needed. The leads were then tied down using 0 silk suture. Additional ligatures were applied to achieve hemostasis. A subfascial pocket was made with blunt dissection with electrocautery, irrigated with bacitracin solution. Leads were then connected to the pulse generator which is a [employer] Carole XT device, serial number [id number]. Lead system and device were then coiled and placed in the pocket. A retention suture was applied to prevent device migration. The skin and superficial layers were brought together using two layers with 2-0 Vicryl. Final layer was closed with Mastisol and Steri-Strips. The patient tolerated the procedure well, remained sedated throughout the procedure. The patient was taken down to the room in hemodynamically stable condition. PLAN: The patient to return to the ICU where she will undergo monitoring as well as postop check which includes chest x-ray, 12-lead EKG, and device check in the morning. If everything is within normal limits, the patient may be discharged perhaps as soon as tomorrow. AV silvia blockade can now be liberally re-instituted as the patient tolerates. The son and the will be abreast of her condition. Octavio Plascencia MD cc: Hernando Taylor MD
[2018-11-25 05:56] LABS: HEMOGLOBIN 11.1 g/dL (12.0-16.0)
[2018-11-25 08:56] VITALS: RESP 13; TEMP 97.5
--- NOTE | 2018-11-25 09:12 | RAD ---
Date of service: 11/24/2018 PROCEDURE: CHEST RADIOGRAPH, 1 VIEW HISTORY: PPM placement COMPARISON: 11/20/2018 FINDINGS: LUNGS: Clear. PLEURA: No pneumothorax or pleural fluid seen. CARDIOVASCULAR: No aortic atherosclerotic calcification present. Heart size probably [id number]. Interval placement of a dual lead pacemaker device. OSSEOUS STRUCTURES: No significant abnormalities. VISUALIZED UPPER ABDOMEN: Normal. OTHER FINDINGS: None. IMPRESSION: Interval placement dual lead pacemaker device. Position localization appears satisfactory per frontal view. No active disease.Other findings as above.
--- NOTE | 2018-11-25 10:23 | CARD ---
APPROVED REPORT Date of service: 11/25/2018 EKG Measurement Heart [id number] <Conclusion> Normal sinus rhythm Normal ECG
--- NOTE | 2018-11-25 10:50 | PCM.STROKE ---
Interval History Stroke Date: 11/19/18 - Treatment Antiplatelet: Acetylsalicylic acid (ASA), Plavix Statin: Atrovastatin - Education Written Stroke Education provided regarding: personal risk factors, stroke warning sign/symptoms, how to activate emergency medical services, need to follow up after discharge Hx Atrial Fibrillation: Yes - Therapy Notes I have reviewed care of the patient with: Dr. Camacho NIHSS Stroke Scale - Date/Time Evaluation Performed Date Performed: 11/25/18 Time Performed: 11:34 When Was NIHSS Performed: Re-evaluation - How Severe is the Stroke Level of Consciousness: 0=Alert LOC to Questions: 0=Both comments correct LOC to commands: 0=Obeys both correctly Best Gaze: 0=Normal Visual: 0=No visual loss Facial: 0=Normal Motor Arm - Left: 0=No drift Motor Arm - Right: 0=No drift Motor Leg - Left: 0=No drift Motor Leg - Right: 0=No drift Limb Ataxia: 0=Absent Sensory: 0=Normal Best Language: 0=No aphasia Dysarthia: 0=Normal articulation Extinction & Inattention (Neglect): 0=Normal, no object Score: 0 Exam - Vital Sign Vital Signs: Temp Pulse Resp BP Pulse Ox 97.5 F L 88 13 158/82 H 95 11/25/18 08:00 11/25/18 08:50 11/25/18 08:00 11/25/18 08:50 11/25/18 08:00 Constitutional: No distress, Normal appearing Ophthalmoscopic: absent: papilledema, hemorrhage Right Pupil: Reactive Left Pupil: Reactive Cardiovascular: Other (paced at 60) Mental Status: Normal: Orientation, Attention, Language, Fund of Knowledge. Abnormal: Memory (forgetful) Cranial Nerve: Normal: Visual Raymond, Extraocular movement intact, Facial Sensation, Facial Strength, Palate/Tongue Movement, Shoulder Strength Motor: Tone Neuro motor strength exam: Left Upper Extremity: 5, Right Upper Extremity: 5, Left Lower Extremity: 5, Right Lower Extremity: 5 Sensation: Intact to pin DTR: Patellar Left: 1+, Patellar Right: 1+ Flexor Plantar Reflex: Normal Coordination: Finger/nose, Heel/Tapia - Data reviewed Laboratory results: 11/25/18 04:41 11/25/18 04:41 Triglycerides 171 mg/DL (0-149) H 11/20/18 04:25 Cholesterol 204 mg/dL (0-199) H 11/20/18 04:25 LDL Cholesterol Direct 129 mg/dL (0-129) 11/20/18 04:25 HDL Cholesterol 54 MG/DL (30-70) 11/20/18 04:25 Hemoglobin A1c 6.4 % (4.2-6.5) 11/19/18 16:50 Assessment and Plan (1) CVA (cerebral vascular accident) Assessment & Plan: Imaging reviewed: -CTA Head and Neck (11/21/18): 1. 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 Time frame this finding is unclear as preliminary brain MRI performed 04/22/2019 does not demonstrate brain infarction typically related to this distribution. Unremarkable left MCA enhancement. 2. Hypoplastic right A1 JOJO branch with left A1 JOJO and bilateral A2 as well as pericallosal JOJO branches widely patent. 3. No suspicious findings in posterior circulation. 4. No significant stenosis within bilateral common or internal carotid artery segments in the neck. Atherosclerotic changes are mild at the bilateral common and proximal internal carotid arteries. -Carotid U/S (11/20/18): Relatively extensive plaque seen at the left greater than right carotid bulb regions and is mildly appreciated within the various short segments of the bilateral common carotid arteries without significant stenosis in the bilateral internal carotid arteries. Limited atherosclerotic plaques identified the proximal bilateral ICA. -Brain MRI (11/20/18): There is a small acute in the cortical infarct right posterior occipito parietal watershed zone. There is also a subacute to chronic small infarct left posterior superior basal nuclei/lorenzo radiata junction. Moderate chronic white matter and lesser basal nuclei ischemic changes. Moderate generalized volume loss. -CT head (11/19/18):No acute intracranial hemorrhage. Moderate to fairly significant chronic white matter ischemic changes. There is also some extension of these changes into the white matter tracts of both basal nuclei with s cattered more discrete chronic bilateral basal nuclei lacunar type infarcts. Moderate fairly significant central volume loss. There are a few bubbles of air in the regions of both cavernous sinuses. More significant subcutaneous air scattered about the frontal scalp at the level of the forehead both infratemporal fossa and frontotemporal scalp regions left greater than right. Findings could be secondary to a recent intravenous injection contaminated with air. Clinical correlation recommended to exclude the possibility of recent trauma.. -Continue ASA 81 mg PO Daily and Plavix 75 mg PO Daily; Continue Statin (rx given for 7 days supply; pt has more at home in [place]). -TEDS to be placed prior to d/c. -Again today I discussed at length with the pt and family her risk factors for secondary stroke ad well as preventing DVT and further strokes since she is flying back to [place] tomorrow evening. -Pt has a follow up appt already scheduled with her learning administrator in [place] for next week (12/02/18 at 9am). -Please notify neuro of any acute changes in pt's condition. No further neuro recommendations. Reconsult prn. Thank you for this consultation. Leslie Vargas, RICARDO, RELIGION DEPARTMENT CHAIR d/w Dr. Camacho Status: Acute
--- NOTE | 2018-11-25 10:55 | RAD ---
Date of service: 11/25/2018 HISTORY: f/u PPM placement COMPARISON: 11/24/2018 TECHNIQUE: 1 view obtained. FINDINGS: LUNGS: No active pulmonary disease. PLEURA: No significant pleural effusion identified, no pneumothorax apparent. CARDIOVASCULAR: No aortic atherosclerotic calcification present. Heart size probably [id number] no pulmonary vascular congestion. Dual lead pacemaker device appears as before. OSSEOUS STRUCTURES: No significant fractures. Bilateral shoulder arthrosis incidentally noted. VISUALIZED UPPER ABDOMEN: Normal. OTHER FINDINGS: None. IMPRESSION: Pacemaker similar no interval pathology appreciated.
[2018-11-25 11:33] VITALS: BP 119/55
[2018-11-25 11:40] VITALS: PULSE 72; O2SAT 98
--- NOTE | 2018-11-25 11:44 | RAD ---
Date of service: 11/24/2018 PROCEDURE: Fluoroscopy up to 1 hr. HISTORY: PACEMAKER COMPARISON: None TECHNIQUE: Total fluoroscopic time (continuous mode) utilized during the procedure 505.2 seconds. Total exam DLP: 105.90 (mGy). FINDINGS: Submitted images from the current procedure: 6.0. IMPRESSION: Less than 1 hr fluoroscopic assistance provided during performance of the procedure.
--- NOTE | 2018-11-25 12:10 | CP.CCUPN ---
<Dwain Tejada - Last Filed: 11/25/18 12:08> CCU Subjective - Physician Review Subjective (Free Text): No acute overnight events. S/P pacemaker placement on 11/24 HR stable in 70's to 80's Pt denies cp, sob. at bedside. CCU Objective - Vital Signs / Intake & Output Vital Signs (Last 4 hours): Vital Signs Temp Pulse Resp BP Pulse Ox 11/25/18 10:00 66 119/55 L 11/25/18 08:50 88 158/82 H 11/25/18 08:49 88 158/82 H 11/25/18 08:48 88 158/82 H 11/25/18 08:00 97.5 F L 75 13 159/82 H 95 Intake and Output (Last 8hrs): Intake & Output 11/24/18 11/25/18 11/25/18 22:59 06:59 14:59 Intake Total 1430 1140 560 Output Total 150 Balance 1280 1140 560 Weight 160 lb 8 oz Intake: IV 1180 640 160 Oral 250 500 400 Output: Urine 150 Urine, Voided 150 Other: # Voids Urine, Voided 1 # Bowel Movements 1 - Physical Exam Pupils: Positive for: PERRL Extroacular Muscles: Positive for: EOMI Conjunctiva: Positive for: Normal Mouth: Positive for: Moist Mucous Membranes Respiratory/Chest: Positive for: Clear to Auscultation. Negative for: Good Air Exchange, Respiratory Distress, Accessory Muscle Use, Wheezes, Rales Cardiovascular: Positive for: Regular Rate and Rhythm, Normal S1, S2. Negative for: Murmurs Abdomen: Positive for: Normal Bowel Sounds. Negative for: Tenderness Lower Extremity: Positive for: Normal Inspection Skin: Positive for: Warm Psychiatric: Positive for: Alert, Oriented x 3 - Medications Active Medications: Active Medications Generic Name Dose Route Start Last Admin Trade Name Freq PRN Reason Stop Dose Admin Acetaminophen 650 mg 11/23/18 20:14 11/25/18 07:49 Tylenol 325mg Tab PO 650 mg Q6 PRN Administration Other Amlodipine Besylate 5 mg 11/22/18 09:45 11/25/18 08:50 Norvasc PO 5 mg DAILY COURTNEY Administration Aspirin 81 mg 11/20/18 09:00 11/25/18 08:49 Ecotrin PO 81 mg DAILY COURTNEY Administration Atorvastatin Calcium 40 mg 11/19/18 22:00 11/24/18 21:46 Lipitor PO 40 mg HS COURTNEY Administration Carvedilol 12.5 mg 11/24/18 21:00 11/25/18 08:48 Coreg PO 12.5 mg Q12 COURTNEY Administration Clopidogrel Bisulfate 75 mg 11/24/18 14:30 11/25/18 08:51 Plavix PO 75 mg DAILY COURTNEY Administration Famotidine 40 mg 11/19/18 16:30 11/25/18 08:51 Pepcid PO 40 mg DAILY COURTNEY Administration Hydralazine HCl 25 mg 11/21/18 09:00 11/25/18 08:48 Apresoline PO 25 mg QID COURTNEY Administration Losartan Potassium 25 mg 11/20/18 09:00 11/25/18 08:49 Cozaar PO 25 mg DAILY COURTNEY Administration Memantine 5 mg 11/24/18 10:30 11/25/18 08:50 Namenda PO 5 mg Q12 COURTNEY Administration - Patient Studies Lab Studies: Lab Studies 11/25/18 11/25/18 Range/Units 04:41 04:41 WBC 12.3 H (4.8-10.8) K/uL RBC 3.42 L (3.80-5.20) Mil/uL Hgb 11.1 L D (12.0-16.0) g/dL Hct 32.7 L (34.0-47.0) % MCV 95.6 D (81.0-99.0) fl MCH 32.4 H (27.0-31.0) pg MCHC 33.9 (33.0-37.0) g/dL RDW 12.6 (11.5-14.5) % Plt Count 213 (130-400) K/uL Sodium 134 (132-148) mmol/l Potassium 4.2 (3.6-5.0) MMOL/L Chloride 105 (98-107) mmol/L Carbon Dioxide 21 L (22-30) mmol/L Anion Gap 12 (10-20) BUN 25 H (7-17) mg/dl Creatinine 1.0 (0.7-1.2) mg/dl Est GFR ( Amer) > 60 Est GFR (Non-Af Amer) 53 Random Glucose 148 H (65-105) mg/dL Calcium 9.3 (8.4-10.2) mg/dL Laboratory Results - last 24 hr 11/25/18 11/25/18 04:41 04:41 WBC 12.3 H RBC 3.42 L Hgb 11.1 L D Hct 32.7 L MCV 95.6 D MCH 32.4 H MCHC 33.9 RDW 12.6 Plt Count 213 Sodium 134 Potassium 4.2 Chloride 105 Carbon Dioxide 21 L Anion Gap 12 BUN 25 H Creatinine 1.0 Est GFR ( Amer) > 60 Est GFR (Non-Af Amer) 53 Random Glucose 148 H Calcium 9.3 Radiology Impressions: Radiology Impressions Chest X-Ray 11/24/18 20:50 IMPRESSION: Interval placement dual lead pacemaker device. Position localization appears satisfactory per frontal view. No active disease.Other findings as above. Chest X-Ray 11/25/18 09:44 IMPRESSION: Pacemaker similar no interval pathology appreciated. Fingerstick Blood Sugar Results: 176 Critical Care Progress Note - Nutrition Nutrition: Nutrition Category Date Time Status Cardiac [Heart Healthy Diet] [DIET] Diets 11/25/18 Breakfast Active Assessment/Plan - Assessment and Plan (Free Text) Assessment: Pt is an 83 y/o female with hx of Dementia, HTN, HLD, Atrial Fibrillation, Chronic Sinusitis brought to ED by EMS for pre-syncopal episodes associated with vomiting, noted to be Bradycardic HR in 30's w/ EKG demonstrating +junctional rhythms, received 1 dose of Atropine with slight improvement of HR. Also found to have small parietal stroke. Admitted to ICU for close cardiac monitoring s/p pacemaker placement on 11/25/[address] Chavez. HR stable. Pt clear for discharge as per Dr. Chavez and Dr. Mcclelland. Will discharge on Coreg 12.5 BID only and dc other AV Emilia blocking agents. Neuro - Hx of Dementia. C/W Mamantine - Head CT: No acute intracranial hemorrhage, chronic ischemic changes - Brain MRI report significant for : Small acute cortical infarct right posterior occipito patietal watershed zone, subacute to chronic small infarct left posterior basal nuclei/ lorenzo radiata junction. - Head & Neck CTA: Moderate to severe stenosis at several right MCA branches..does not demonstrate brain infarction typically related to this distribution - Carotid US: Extensive plaques L>R at carotid bulbs - Neuro on board - C/W ASA, Plavix, Statin Cardio - Symptomatic Bradycardia w/ HR in 30's S/P Atropine x1 in ED - EKG on admission: HR 45, Atrial Fibrillation, +Junctional rhythms, no ischemic changes - Has underlying Hx of Afibb, possibly paroxysmal - Bradycardia likely medication induced as pt is currently on multiple AV emilia blocking agents (Metroprolol, Coreg, Cardizem) - AV emilia blocking medication held and HR improved in Sinus Rhythm - BP stable on Norvasc, Hydralazine, and Losartan - S/P PACEMAKER placement. F/U fluoroscopy study. - Continuous Cardiac Monitoring - Echo report: LVEF 60-65% mild concentric LVH, mild MR and TR - Cardiac Electrophysicist Dr. Newell on board, plan for pacemaker placement today - House Calls Nurse Practitioner, Dr. Mcclelland on board Pulm - Saturating 95-99% on Rm air Renal - YUNI on CKD improving on IV fluids GI - Pepcid for possible Gastritis - NPO for procedure - Transminitis resolved Endocrine - TSH normal and Hga1c 6.0 PPx - DVT: Lovenox held for OR. SCD's for now Discussed case with Dr. Dawson Tejada PGY2 <Leonid Osman - Last Filed: 11/26/18 07:12> Assessment/Plan - Assessment and Plan (Free Text) Plan: Attestation: Patient seen and examined at the bedside with Resident Dr. Perla Tejada; and I agree with her outline of plans and management documented above as discussed on AM rounds; reflecting my review of all applicable clinical data, and participation in the care of the patient throughout the day in ICU; today, November 25, 2018.
--- NOTE | 2018-11-25 12:15 | CP.PCM.DIS ---
Provider - Provider Date of Admission: 11/19/18 14:45 Attending physician: Zbigniew Desai MD Consults: 11/19/18 14:34 Physician Consult Routine Comment: Consulting Provider: Octavio Plascencia Consulting Physician: Octavio Plascencia Reason for Consult: symptomatic bradycardia 11/19/18 16:49 Cardiology Consult Routine Comment: Consulting Provider: Hernando Taylor Consulting Physician: Hernando Taylor Reason for Consult: symotomatic bradycardia 11/20/18 17:04 Neurology Consult Routine Comment: Consulting Provider: Betty Cook Consulting Physician: Betty Cook Reason for Consult: acute cva Time Spent in preparation of Discharge (in minutes): 38 Diagnosis - Discharge Diagnosis (1) Symptomatic bradycardia Status: Acute (2) CVA (cerebral vascular accident) Status: Acute (3) Near syncope Status: Acute (4) Acute on chronic kidney failure Status: Acute (5) Hypertension Status: Acute (6) Dementia Status: Acute Hospital Course - Lab Results Lab Results: Micro Results 11/19/18 11:41 Naris MRSA Culture (Admit) - Final MRSA NOT DETECTED Most Recent Lab Values WBC 12.3 K/uL (4.8-10.8) H 11/25/18 04:41 RBC 3.42 Mil/uL (3.80-5.20) L 11/25/18 04:41 Hgb 11.1 g/dL (12.0-16.0) L D 11/25/18 04:41 Hct 32.7 % (34.0-47.0) L 11/25/18 04:41 MCV 95.6 fl (81.0-99.0) D 11/25/18 04:41 MCH 32.4 pg (27.0-31.0) H 11/25/18 04:41 MCHC 33.9 g/dL (33.0-37.0) 11/25/18 04:41 RDW 12.6 % (11.5-14.5) 11/25/18 04:41 Plt Count 213 K/uL (130-400) 11/25/18 04:41 MPV 8.6 fl (7.2-11.7) 11/21/18 04:06 Neut % (Auto) 78.5 % (50.0-75.0) H 11/21/18 04:06 Lymph % (Auto) 9.5 % (20.0-40.0) L 11/21/18 04:06 Harnett % (Auto) 9.6 % (0.0-10.0) 11/21/18 04:06 Eos % (Auto) 1.8 % (0.0-4.0) 11/21/18 04:06 Baso % (Auto) 0.6 % (0.0-2.0) 11/21/18 04:06 Neut # (Auto) 8.6 K/uL (1.8-7.0) H 11/21/18 04:06 Lymph # (Auto) 1.0 K/uL (1.0-4.3) 11/21/18 04:06 Harnett # (Auto) 1.1 K/uL (0.0-0.8) H 11/21/18 04:06 Eos # (Auto) 0.2 K/uL (0.0-0.7) 11/21/18 04:06 Baso # (Auto) 0.1 K/uL (0.0-0.2) 11/21/18 04:06 Neutrophils % (Manual) 86 % (42-75) H 11/20/18 04:25 Lymphocytes % (Manual) 8 % (20-50) L 11/20/18 04:25 Monocytes % (Manual) 5 % (0-10) 11/20/18 04:25 Basophils % (Manual) 1 % (0-2) 11/20/18 04:25 Platelet Estimate Normal (NORMAL) 11/20/18 04:25 Large Platelets Present 11/20/18 04:25 Anisocytosis (manual) Slight 11/20/18 04:25 PT 12.6 Seconds (9.8-13.1) 11/24/18 07:30 INR 1.1 11/24/18 07:30 APTT 28.6 Seconds (25.6-37.1) 11/19/18 12:18 pO2 31 mm/Hg (30-55) 11/19/18 14:35 VBG pH 7.33 (7.32-7.43) 11/19/18 14:35 VBG pCO2 42 mmHg (40-60) 11/19/18 14:35 VBG HCO3 20.9 mmol/L 11/19/18 14:35 VBG Total CO2 23.4 mmol/L (22-28) 11/19/18 14:35 VBG O2 Sat (Calc) 61.8 % (40-65) 11/19/18 14:35 VBG Base Excess -3.7 mmol/L (0.0-2.0) L 11/19/18 14:35 VBG Potassium 4.6 mmol/L (3.6-5.2) 11/19/18 14:35 Sodium 136.0 mmol/L (132-148) 11/19/18 14:35 Chloride 110.0 mmol/L (98-107) H 11/19/18 14:35 Glucose 121 mg/dL (65-105) H 11/19/18 14:35 Lactate 2.2 mmol/L (0.7-2.1) H 11/19/18 14:35 FiO2 21.0 % 11/19/18 14:35 Sodium 134 mmol/l (132-148) 11/25/18 04:41 Potassium 4.2 MMOL/L (3.6-5.0) 11/25/18 04:41 Chloride 105 mmol/L (98-107) 11/25/18 04:41 Carbon Dioxide 21 mmol/L (22-30) L 11/25/18 04:41 Anion Gap 12 (10-20) 11/25/18 04:41 BUN 25 mg/dl (7-17) H 11/25/18 04:41 Creatinine 1.0 mg/dl (0.7-1.2) 11/25/18 04:41 Est GFR ( Amer) > 60 11/25/18 04:41 Est GFR (Non-Af Amer) 53 11/25/18 04:41 POC Glucose (mg/dL) 174 mg/dL (65-110) H 11/19/18 12:09 Random Glucose 148 mg/dL (65-105) H 11/25/18 04:41 Hemoglobin A1c 6.4 % (4.2-6.5) 11/19/18 16:50 Calcium 9.3 mg/dL (8.4-10.2) 11/25/18 04:41 Phosphorus 2.8 mg/dl (2.5-4.5) 11/20/18 04:25 Magnesium 1.8 MG/DL (1.6-2.3) 11/20/18 04:25 Total Bilirubin 1.2 mg/dl (0.2-1.3) 11/24/18 04:15 AST 24 U/L (14-36) 11/24/18 04:15 ALT 48 U/L (9-52) 11/24/18 04:15 Alkaline Phosphatase 91 U/L (38-126) 11/24/18 04:15 Troponin I 0.0130 ng/mL (0.00-0.120) 11/20/18 04:25 Total Protein 6.7 G/DL (6.3-8.2) 11/24/18 04:15 Albumin 3.7 g/dL (3.5-5.0) 11/24/18 04:15 Globulin 3.0 gm/dL (2.2-3.9) 11/24/18 04:15 Albumin/Globulin Ratio 1.2 (1.0-2.1) 11/24/18 04:15 Triglycerides 171 mg/DL (0-149) H 11/20/18 04:25 Cholesterol 204 mg/dL (0-199) H 11/20/18 04:25 LDL Cholesterol Direct 129 mg/dL (0-129) 11/20/18 04:25 HDL Cholesterol 54 MG/DL (30-70) 11/20/18 04:25 TSH 3rd Generation 3.36 mIU/ML (0.46-4.68) 11/19/18 16:50 Venous Blood Potassium 4.6 mmol/L (3.6-5.2) 11/19/18 14:35 - Hospital Course Hospital Course: 83 y/o female with hx of Dementia, HTN, HLD, Atrial Fibrillation, Chronic Sinusitis admitted to ICU with symptomatic bradycardia and near syncope. Patient noted to be on several medications for HTN including 2 beta blockers. Also Acute on CKD that resolved after IV fluids. All BP meds were held. Echo: LVEF 60-65% mild concentric LVH, mild MR and TR. Head CT: No acute intracranial hemorrhage, chronic ischemic changes. Brain MRI: Small acute cortical infarct right posterior occipito patietal watershed zone, subacute to chronic small infarct left posterior basal nuclei/ lorenzo radiata junction. Head & Neck CTA: Moderate to severe stenosis at several right MCA branches. Cardiology, Electrophysicist and Neurology were consulted. Patient underwent pacemaker placement tolerated well the procedure, hemodynamically stable for discharge. Home medications doses adjusted, new Rx given, instructions to f/u with PCP and her Radial Drill Operator next week in [place]. Patient discharged safety to home. Discharge Exam - Head Exam Head Exam: NORMAL INSPECTION - Eye Exam Eye Exam: EOMI, Normal appearance, PERRL - ENT Exam ENT Exam: Mucous Membranes Moist - Neck Exam Neck exam: Full Rom, Normal Inspection - Respiratory Exam Respiratory Exam: Clear to PA & Lateral, NORMAL BREATHING PATTERN. absent: Respiratory Distress - Cardiovascular Exam Cardiovascular Exam: REGULAR RHYTHM, +S1, +S2. absent: Bradycardia, Tachycardia Additional comments: PPM insertion site looks clean, dry and intact, steri strips in place. - GI/Abdominal Exam GI & Abdominal Exam: Normal Bowel Sounds, Soft. absent: Distended, Guarding, Tenderness - Extremities Exam Extremities exam: normal capillary refill, pedal pulses present - Neurological Exam Neurological exam: Alert, CN II-XII Intact - Psychiatric Exam Psychiatric exam: Normal Mood - Skin Skin Exam: Dry, Warm Discharge Plan - Discharge Medications Prescriptions: amLODIPine [Norvasc] 5 mg PO DAILY 30 Days #30 tab Aspirin [Ecotrin] 81 mg PO DAILY #30 tabec Atorvastatin [Lipitor] 40 mg PO HS #7 tab Carvedilol [Coreg] 12.5 mg PO Q12 30 Days #60 tab Cephalexin [Keflex] 500 mg PO Q8 4 Days #12 capsule Clopidogrel [Plavix] 75 mg PO DAILY #30 tab Losartan [Cozaar] 50 mg PO DAILY 30 Days tab - Follow Up Plan Condition: FAIR Disposition: HOME/ ROUTINE Additional Instructions: Please follow up with your treatment specialist next week as already scheduled; take the copies of your bloodwork and other tests to this appointment. Make sure you wear your compression stockings on the flight back home. Try to walk around the plane as tolerated to help with your circulation. Make sure you take your Aspirin and Plavix the morning of your flight. These must be taken once a day. Take your Atorvastatin during the evening on the flight if possible.
--- NOTE | 2018-11-25 16:29 | PN ---
DATE: 11/25/2018 SUBJECTIVE: The patient underwent dual-chamber pacemaker placement yesterday. No complications overnight. Today, the chest x-ray was reviewed. No evidence of pneumothorax. No reported atrial fibrillation. PHYSICAL EXAMINATION: VITAL SIGNS: Blood pressure 119/55, heart rate 66, temperature 97.5, respirations 20. HEENT: Normocephalic. CHEST: Clear. HEART: S1 and S2, regular. EXTREMITIES: No edema. LABORATORY DATA: Today's hemoglobin and hematocrit are 11.1 and 32.7. White count 12.3, platelet count 215,000. Today's SMA-7 is within normal limits except for a glucose of 148, carbon dioxide of 21, and BUN of 25. ASSESSMENT: 1. Status post near syncope secondary to symptomatic bradycardia. 2. Paroxysmal atrial fibrillation. 3. Acute cerebrovascular accident. RECOMMENDATIONS: Continue hydralazine 25 mg four times a day, resume Coreg at 12.5 mg twice a day, aspirin 81 mg once a day, Plavix 75 mg once a day, Norvasc at 5 mg once a day, Lipitor at 40 mg once a day. Case was discussed with record press supervisor, Dr. Plascencia and was discussed with the patient, her , and son at the bedside. The patient can be discharged from the cardiac point to be followed by her physician in [place], and her flight is scheduled for tomorrow afternoon. Hernando Taylor MD
== END 2018-11-25 14:04 | disposition home or self-care (01) | DRG 907 ==
LOC: H.ER 11:54 → H.ERHOLD 14:45 → H.ICU/CCU 15:35
PROVIDERS: ADMIT Internal Medicine; ATTEND Internal Medicine
PROC: 02HK3JZ Insertion of Pacemaker Lead into Right Ventricle, Percutaneous Approach (ICD-10-PCS; 2018-11-24)
PROC: 0JH606Z Insertion of Pacemaker, Dual Chamber into Chest Subcutaneous Tissue and Fascia, Open Approach (ICD-10-PCS; 2018-11-24)
PROC: 02H63JZ Insertion of Pacemaker Lead into Right Atrium, Percutaneous Approach (ICD-10-PCS; principal; 2018-11-24 15:30)
DX: T44.7X1A Poisoning by beta-adrenoreceptor antagonists, accidental (unintentional), initial encounter (principal); I63.9 Cerebral infarction, unspecified; N17.9 Acute kidney failure, unspecified; I48.0 Paroxysmal atrial fibrillation; I12.9 Hypertensive chronic kidney disease with stage 1 through stage 4 chronic kidney disease, or unspecified chronic kidney disease; N18.9 Chronic kidney disease, unspecified; Y63.8 Failure in dosage during other surgical and medical care; Z87.891 Personal history of nicotine dependence; Z96.653 Presence of artificial knee joint, bilateral; I49.5 Sick sinus syndrome; E78.5 Hyperlipidemia, unspecified; J32.9 Chronic sinusitis, unspecified; F03.90 Unspecified dementia, unspecified severity, without behavioral disturbance, psychotic disturbance, mood disturbance, and anxiety; R29.700 NIHSS score 0; E83.52 Hypercalcemia; I66.01 Occlusion and stenosis of right middle cerebral artery